=== PATIENT | female | born 1945 | race Caucasian/White ===

== ENCOUNTER 2023-11-29 16:48 | Inpatient (IN) | payer OTHER, SELFPAY ==
[2023-11-29] VITALS (17 sets, daily range): BP systolic 101–145; BP diastolic 48–78; PULSE 2–110; BMI 41.7; BMI 39.5
--- NOTE | 2023-11-29 12:46 | ED.GENMED ---
History of Present Illness
General
Chief Complaint: Breathing Problem
Source: patient and ambulance crew
Exam Limitations: none
Time Seen by Provider: 11/29/23 12:44
Nursing documentation reviewed up to this point in time: agreed with
History of Present Illness
History of Present Illness:
The patient is an 78-year-old female with a past medical history of CHF, chronic renal disease, and COPD who presents with increased work of breathing and increased dry cough for 2 days. Patient chronically wears 4 L of oxygen and arrives wearing 4
L of oxygen. Patient denies chest pain and fever. She denies headache, nasal congestion, and increased leg swelling. Patient reports that she is wheelchair-bound.
Past History
Past History
ED Past Medical History: Arrthythmia, Asthma, CAD, CHF, COPD, HTN, Hypercholesterolemia, NIDDM, [place] (X6), Valvular disease and Other (Anemia, Cellulitis, Kidney failure, Degenerative arthritis, Ulcers)
ED Past Surgical History: Gynecological, Tonsilectomy and Other (Hernia repair)
Social History
Tobacco: Former smoker
Alcohol: None
Drug: None
Personal:
Living: halfway
Employment: Other
Family History
Family History: Other (No significant)
Review of Systems
Review of Systems
Allergies reviewed?: Yes
All Other Systems: ROS reviewed and negative except as documented in HPI and ROS
Constitutional: Reports no symptoms
EENT: Reports no symptoms
Respiratory: Reports cough and trouble breathing
Cardiac: Reports no symptoms
ABD/GI: Reports no symptoms
: Reports no symptoms
Musculoskeletal: Reports no symptoms
Skin: Reports no symptoms
Neurological: Reports no symptoms
Endocrine: Reports no symptoms
Hematologic/Lymphatic: Reports no symptoms
Psychiatric: Reports no symptoms
Phy Exam
Physical Exam
Physical Exam:
Physical Exam
General: Patient appears tachypneic but is speaking in full sentences. Audible wheezing. Wearing nasal oxygen
Neck: supple. no meningeal signs. normal psoterior pharynx
Heart: s1/s2 regular rate and rhythm,
Lungs: Tachypneic, wheezing, rhonchi
Abdomen: normal bowel sounds. not tender. no CVAT
Neuro: alert and oriented. no focal neurological deficits
Skin: no rash
Psychiatric: well kept. interactive and cooperative
Extremities: 3+ pitting edema bilateral lower extremities. Negative Homans' sign. No calf tenderness
Scores
Heart Failure Risk
Heart Failure Risk Score: Not Applicable
Course
Orders/Labs/Results
Orders:
Orders
11/29/23 12:44
Albuterol Sulfate [Ventolin Nebules] 15 mg INH R NOW STA
11/29/23 12:45
Electrocardiogram (*1) Stat
Reason for Study: Other
Other Reason for Exam: chest pain
Cardiac Monitoring- Treatment ONCE
EKG- Treatment ONCE
Dexamethasone Sod Phosphate [Decadron] 10 mg IV NOW STA
11/29/23 12:59
COVID-19 Antigen Urgent
Source: Nasal Swab
Influenza A+B Rapid Molecular Urgent
FIDE Source: Nasal Swab
Specimen Description:
11/29/23 13:05
Basic Metabolic Panel Urgent
Complete Blood Count/With Diff Urgent
NT-proBNP Urgent
Troponin I Urgent
11/29/23 14:33
CR Chest Portable - 1 View Urgent
Comment:
Reason For Exam: SOB
Reason Study Needs to be Portable: Patient Unstable
Bipap [RESP] Urgent
Patient to use own unit?: No
Inspiratory Pressure (cm H2O): 10
Expiratory Pressure (cm H2O): 5
11/29/23 Dinner
2000 calorie (17 carb) Diabetic
At Your Request: Full Participation
Fluid Restriction: 1200 mL/day (40 oz)
Diabetic Diet: Sodium, 2 Gram
11/29/23 15:15
Potassium Urgent
11/29/23 16:05
Admit/Transfer Patient As Directed
Co-Sign Provider:
Level of Care: Inpatient admission
Assign to:: IMU- Intermediate Care
Physician / Group: Yaz
Diagnosis: Respiratory Failure; CHF
Reason for Hospitalization: IV diuretics
Expected length of stay greater than two midnights?: Yes
ELOS- Estimated Length of Stay in days: 3
I certify the patient meets the requirements for IP care: Yes
11/29/23 16:14
Code Status As Directed
Resuscitation Status: Do not resuscitate
Reached after discussion with pt or family/Healthcare POA: Yes
Based on pt advanced directive or healthcare POA form: Yes
DNR Bracelet Application ONCE
11/29/23 16:28
Furosemide [Lasix] 80 mg IV NOW STA
11/29/23 16:29
NEPHROLOGY CONSULT Routine
Consulting Provider: Po Rutledge V.
Was physician already notified: Yes
11/29/23 19:11
Acetaminophen [Tylenol] 650 mg PO Q6HPRN PRN
Dextrose 50%-Water [Dextrose 50% Syringe] 12.5 grams IV [id number] PRN
Glucagon [GlucaGen] 1 mg IM PRN PRN
Insulin Aspart Corrective Low [Novolog Flexpen-Low Resistance] See Protocol SC AC
Ipratropium/Albuterol Sulfate [Duoneb] 3 ml INH R Q4HPRN PRN
11/29/23 19:11
Electrocardiogram (*1) Routine
Reason for Study: Other
Other Reason for Exam: heart failure
HF DIETARY CONSULT Routine
HF EDUCATOR CONSULT Routine
Comment:
Activity As Directed
Activity Level: Out of Bed- Chair
Bedside Glucose Monitoring As Directed
Frequency: AC&HS
Comment: Change to q6h if pt on TPN, tube feeding or not eating
Intake/ Output As Directed
Frequency: Per unit guidelines
Obtain Records As Directed
Dates of Information to be Released: July 2023
Type of Information Requested: H&P
Discharge Summary
Consults
Patient Education As Directed
Type: CHF folder
Comment: give on admission. Document in Interdisciplinary Education record
Sleep Apnea Assessment by RN As Directed
Comment:
Physician Instructions:
Vital Signs As Directed
Frequency: Other
Additional Instructions:: Q12 or per unit guidelines if more frequent.
Weight As Directed
Frequency: Daily
Type of Scale: Standing Scale
Comment: Daily morning weight. If unable to stand, use balanced bed scale.
Weight As Directed
Frequency: Once
Type of Scale: Standing Scale
Comment: Upon Admission. If unable to stand, use balanced bed scale.
O2 Therapy [RESP] Routine
Titrate/Wean O2 to maintain O2 sat greater than (%): 90
Pulse Ox/cont/shift [RESP] Routine
Quantity: 1
Special Instructions: Daily pulse oximetry at rest. If greater than 92% at rest also obtain pulse oximetry
while ambulating as tolerated.
11/29/23 20:00
Apixaban [Eliquis] 2.5 mg PO BID
Budesonide [Pulmicort] 0.5 mg INH R BID
Ipratropium/Albuterol Sulfate [Duoneb] 3 ml INH R QID
11/29/23 22:00
Atorvastatin [Lipitor] 40 mg PO HS
11/30/23 06:00
Basic Metabolic Panel IN AM
Complete Blood Count/No Diff IN AM
Glycohemoglobin (HgbA1c) IN AM
Magnesium IN AM
TSH Reflex To Free T4 IN AM
11/30/23 08:00
FOLic ACID [Folvite] 1 mg PO DAILY
Ferrous Sulfate [Feosol] 325 mg PO DAILY
Metoprolol Xl [Toprol Xl] 25 mg PO DAILY
Midodrine [ProAmatine] 10 mg PO DAILY
Pantoprazole [Protonix] 40 mg PO DAILY
Sertraline HCl [Zoloft] 25 mg PO DAILY
12/01/23 06:00
Basic Metabolic Panel IN AM
12/01/23 08:00
Gabapentin [Neurontin] 100 mg PO MoWeFr@0800
12/02/23 06:00
Basic Metabolic Panel IN AM
Abnormal Lab Results
11/29/23
13:05
RBC 3.87 L 10^6/uL
(4.20-5.40)
Hgb 10.8 L g/dL
(12.0-16.0)
Hct 34.5 L %
(37.0-47.0)
MCHC 31.3 L g/dL
(33.0-37.0)
RDW 16.2 H %
(11.5-14.5)
MPV 11.1 H fL
(7.4-10.4)
Absolute Lymphs (auto) 0.5 L 10^3/uL
(1.2-3.4)
Absolute Monos (auto) 0.7 H 10^3/uL
(0.1-0.6)
Immature Gran % 0.6 H %
(0-0.5)
Neutrophils % 81.7 H %
(42.2-75.2)
Lymphocytes % 7.1 L %
(20.5-51.1)
Sodium 132 L mmol/L
(135-145)
BUN 37 H mg/dl
(7-17)
Creatinine 2.0 H mg/dL
(0.6-1.0)
Glucose 165 H mg/dl
(70-99)
11/29/23 13:05
11/29/23 15:15
Vital Signs
Initial and Last Documented VS:
Initial Vital Signs
BP
120/50
11/29/23 12:41
Last Documented Vital Signs
Temp Pulse Resp BP Pulse Ox
98.0 F 108 22 142/57 98
11/29/23 19:28 11/29/23 19:28 11/29/23 19:28 11/29/23 19:00 11/29/23 19:28
MDM/Problems Addressed
Differential Diagnosis Includes:
COPD exacerbation, pneumonia, CHF
MDM/Problems Addressed:
Patient presents with acute on chronic respiratory failure and shortness of breath
Chronic conditions affecting care: Cardiomyopathy, Arrhythmia and COPD
Acute Exacerbation and/or Progression of Chronic Illness:
Given patient has CHF and COPD, she is at increased risk of developing lung disease and exacerbation of COPD and CHF
Acute Exacerbation and/or Progression of Chronic Illness: COPD and Other (chf)
*Radiology
Radiology exam reviewed: preliminary read by ED provider (Chest x-ray checked by me. Left pleural effusion) and radiology read reviewed
*Pulse Oximetry
Patient hypoxic: no
Comment: On 4 L of nasal oxygen which is chronic for her
*EKG
Interpreted by ED Provider?: Yes
Interpretation: abnormal
Comparison EKG: no changes
Rate: normal
Rhythm: sinus
[place]: normal axis
Interval: normal interval
QRS Pattern: left vent hypertrophy
Ischemia: non-specific ST changes
*Environmental Scientist Interpretation
Rate: normal
Interpretation: normal
Rhythm: sinus
*Critical Care Note
Total Time (30-74mins, 75-104mins- exclusive of procedures): 40 minutes
comment:
40 minutes of critical care given to the patient including frequent reassessments of her respiratory effort. Speaking to the hospitalist, reviewing her chest x-ray, lab work, EKG and last hospitalization
Data Reviewed
Review of Other/Old Records Reveals: Discharge Summary (Discharge summary reviewed from October 2018 from hospitalist when patient was admitted for COPD exacerbation)
Source: patient
Update Note
Update Note:
Patient became more short of breath after 1 hour nebulizer. We will start on BiPAP
ED Attending Note
-
Portions of this chart may have been created with voice recognition software.� Occasional wrong word or��sound alike� substitutions may have occurred due to the inherent limitations of voice recognition software.
Discharge Plan
Departure
Patient Disposition: Admit
Date of Disposition: 11/29/23
Time of Disposition: 15:11
Admit to: IMU
Presentation/result/management discussed w/ accepting MD/DO: Hospitalist
Patient with high blood pressure during this ER visit?: Yes
Condition: Critical
Covid-19: Negative COVID-19
Discharge Problem:
Acute on chronic hypoxic respiratory failure, acute on chronic chf
Interventions
Interventions:
*Risk Screen - Suicide Last Done: 11/29/23 12:45
*General Assessment Last Done: 11/29/23 12:45
*Neglect/Abuse Screening Last Done: 11/29/23 12:45
ED- Fall Risk Assessment Last Done: 11/29/23 19:06
*ED COVID-19 Vaccine History Last Done: 11/29/23 12:45
*Nursing Disposition Last Done: 11/29/23 19:06
ED- Cardiac Assessment Last Done: 11/29/23 14:32
ED- Pulmonary Assessment Last Done: 11/29/23 14:32
Discharge Date and Time
Discharge Date/Time: 11/29/23 19:06
[2023-11-29] MEDS: VENTOLIN NEBULES 15 MG INH (13:03)
[2023-11-29] MEDS: DECADRON 10 MG IV (13:09)
[2023-11-29 13:24] LABS: % Basophils 0.6 % (0-2); % Eosinophils 0.7 % (0-6); % Immature Granulocytes 0.6 % (0-0.5); % Lymphocytes 7.1 % (20.5-51.1); % Monocytes 9.3 % (1.7-9.3); % Neutrophils 81.7 % (42.2-75.2); Absolute Eosinophils 0.1 10^3/uL (0-0.7); Absolute Lymphocytes 0.5 10^3/uL (1.2-3.4); Absolute Monocytes 0.7 10^3/uL (0.1-0.6); Absolute Neutrophils 5.9 10^3/uL (1.4-6.5); Hematocrit 34.5 % (37.0-47.0); Hemoglobin 10.8 g/dL (12.0-16.0); Mean Corp Hgb Conc. 31.3 g/dL (33.0-37.0); Mean Corpuscular Hgb 27.9 pg (27.0-31.0); Mean Corpuscular Volume 89.1 fL (81.0-99.0); Mean Platelet Volume 11.1 fL (7.4-10.4); Nucleated Red Blood Cells % 0 %; Platelet Count 176 10^3/uL (130-400); Red Blood Cell Count 3.87 10^6/uL (4.20-5.40); Red Cell Dist. Width 16.2 % (11.5-14.5); White Blood Cell Count 7.2 10^3/uL (4.8-10.8)
[2023-11-29 13:33] LABS: COVID-19 Antigen Negative (Negative)
[2023-11-29 13:35] LABS: Blood Urea Nitrogen 37 mg/dl (7-17); Calcium 9.1 mg/dl (8.4-10.2); Carbon Dioxide 25 mmol/L (22-30); Chloride 101 mmol/L (98-107); Estimated Creatinine Clearance 24 ml/min; Glucose 165 mg/dl (70-99); Sodium 132 mmol/L (135-145); eGFR 24.79
[2023-11-29 13:43] LABS: NT-proBNP > 27000 pg/ml; Troponin I < 0.012 ng/ml
--- NOTE | 2023-11-29 14:27 | PHANOTE ---
Addendum entered by Maria Esther Goodwin 11/29/23 16:20:
called shelter back to verify Levemir dosing
Original Note:
11/29/2023, med rec tech, used pt.'s [place] paperwork to obtain their med. list; however, [place] paperwork does not specify how many units of insulin detemir pt. takes in the morning vs. in the evening. Called [facility], but was unsuccessful in determining this
information. [facility] said they will call back with this information when they have it.
[2023-11-29 15:34] LABS: Potassium 4.8 mmol/L (3.5-5.1)
--- NOTE | 2023-11-29 16:30 | HPS.HSE ---
Addendum entered and electronically signed by Errol Mukherjee MD 11/30/23 07:52:
I saw and examined the patient.
The [facility] or PA's note was reviewed and I agree with the note.
Comment:
78-year-old with past medical history of ESRD on dialysis, COPD chronically on 4 L,�Afib, Asthma, CAD, HTN, Hypercholesterolemia, NIDDM, [place] (X6), chronic HFpEF, moderate to severe MR, mild-moderate AAS�now presents for increased work of breathing
and dry cough for 2 days.� Patient was placed on BiPAP for respiratory support.� Tachycardic to 113, respiratory rate of 31.� Rhonchi bilaterally.� Sodium 132, trops x 1 negative.� SARS-CoV-2 negative.� X-ray with mild pulmonary vascular congestion,
agents of the left hemidiaphragm, most likely left pleural effusion.� Plan�80 mg IV Lasix now.� Renal consult for HD.� Trend troponins.� Echo
Original Note:
Family Physician
-
Family Physician: Talon Duron
Chief Complaint
-
Shortness of Breath
History of Present Illness
Patient is 78 y/o female past medical history of CAD, CHF, and CKD who presents with increased shortness of breath. Patient reports symptoms started last night. She admits to associated cough. She denies fevers, sweats or chills. She denies
chest pain, palpitations or increased lower extremity edema. She notes she was started on dialysis a few months ago during a hospitalization at [facility], but still makes urine.
Medical History
Past Medical History
Past Medical History: Reports Other
Additional Past Medical History:
Coronary Artery Disease s/p stents
Chronic HFpEF
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
Paroxysmal Atrial Fibrillation
Essential Hypertension
Hyperlipidemia
Diabetes Mellitus, Type II
Peripheral Neuropathy
COPD
Past Surgical History: Reports Other
Additional Past Surgical History:
Tonsillectomy
Hernia Repair
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
Social History
Tobacco: Non-smoker
Living: [facility]
Family History
Family History: Not pertinent
Allergies / Home Medications
Allergies reflects when Allergies were last updated in [facility].
Home Medications with original date entered in [facility]
Allergy/Medication List:
Allergies
Allergy/AdvReac Type Severity Reaction Status Date / Time
amoxicillin trihydrate Allergy Nausea / Verified 11/10/18 16:46
[From Augmentin] Vomiting
cat dander Allergy DYSPNEA,HOT Verified 11/10/18 16:46
FLASHES,CHEST
PAIN
cephalexin Allergy Nausea / Verified 11/10/18 16:46
Vomiting
Iodinated Contrast Media Allergy Unknown Verified 11/10/18 16:46
[Iodinated Contrast Media -
Oral and]
levofloxacin [From Levaquin] Allergy severe Verified 11/10/18 16:46
abdominal
symptoms
lidocaine Allergy HALLUCINATI Verified 11/10/18 16:46
ONS
potassium clavulanate Allergy Nausea / Verified 11/10/18 16:46
[From Augmentin] Vomiting
procaine [From Novocain] Allergy Unknown Verified 11/10/18 16:46
surinder hips Allergy Unknown Verified 11/10/18 16:46
venom-honey bee Allergy Anaphylaxis Verified 11/10/18 16:46
[bee venom (honey bee)]
Home Medications
atorvastatin 40 mg tablet 40 mg PO HS 10/20/14
nitroglycerin 0.4 mg sublingual tablet 0.4 mg sublingual [id number] PRN chest pain #30 tabs 11/28/15
acetaminophen 325 mg tablet (Tylenol) 650 mg PO Q6H PRN mild pain 11/29/23
acetaminophen 650 mg tablet,extended release (Tylenol 8 Hour) 1,300 mg PO Q8H PRN mild pain 11/29/23
albuterol sulfate 90 mcg/actuation aerosol inhaler 2 puff inhalation R Q4HPRN PRN sob 11/29/23
albuterol sulfate 90 mcg/actuation aerosol inhaler 2 puff inhalation R QID 11/29/23
apixaban 2.5 mg tablet (Eliquis) 2.5 mg PO BID 11/29/23
bisacodyl 10 mg rectal suppository 10 mg OK DAILY PRN if no results for MOM 11/29/23
carboxymethylcellulose sodium 1 % eye drops 1 drp BOTH EYES Q1HPRN PRN dry eyes 11/29/23
cyanocobalamin (vitamin B-12) 1,000 mcg tablet 1,000 mcg PO DAILY 11/29/23
cyclobenzaprine 10 mg tablet 10 mg PO Q8HPRN PRN muscle spasms 11/29/23
ferrous sulfate 325 mg (65 mg iron) tablet 325 mg PO DAILY 11/29/23
fluticasone fur. 100 mcg-umeclid 62.5 mcg-vilant 25 mcg inhalat.powder (Trelegy Ellipta) 2 inh inhalation R DAILY 11/29/23
fluticasone propionate 110 mcg/actuation HFA aerosol inhaler 1 puff inhalation R DAILY 11/29/23
folic acid 1 mg tablet 1 mg PO DAILY 11/29/23
gabapentin 100 mg capsule 100 mg PO [id number] 11/29/23
guaifenesin 600 mg tablet, extended release 12 hr (Mucus Relief ER) 600 mg PO [id number] PRN cough 11/29/23
insulin detemir U-100 100 unit/mL subcutaneous solution 12 unit SC DAILY 11/29/23
insulin detemir U-100 100 unit/mL subcutaneous solution 17 unit SC HS 11/29/23
magnesium hydroxide 400 mg/5 mL oral suspension (Milk of Magnesia) 30 ml PO HSPRN PRN if no BM in 3 days 11/29/23
metoprolol succinate 25 mg tablet,extended release 24 hr 25 mg PO DAILY 11/29/23
miconazole nitrate 2 % topical cream 1 applic topical BID apply to perineum 11/29/23
midodrine 5 mg tablet 10 mg PO DAILY 11/29/23
nystatin 100,000 unit/gram topical powder 1 applic topical BID apply to folds 11/29/23
pantoprazole 40 mg tablet,delayed release 40 mg PO DAILY 11/29/23
sennosides 8.6 mg tablet (senna) 17.2 mg PO [id number] PRN constipation 11/29/23
sertraline 25 mg tablet 25 mg PO DAILY 11/29/23
sodium chloride 0.65 % nasal spray aerosol 1 spray intranasal Q2H PRN rhinitis 11/29/23
Review of Systems
-
A 12 point ROS was completed and negative except as noted: Yes
Constitutional: Denies Fever or Chills
Respiratory: Reports Cough and Trouble Breathing
Cardiac: Denies Chest Pain or Palpitations
Physical Exam
Vital Signs
Vital Signs
Temp Pulse Resp BP Pulse Ox
98.7 F 105 23 142/54 96
11/29/23 12:45 11/29/23 15:15 11/29/23 15:15 11/29/23 14:29 11/29/23 15:15
Physical Exam
General: Well Developed, Well Nourished and Conversant
HEENT: Anicteric, Moist mucous membranes and Oxygen (Bipap)
Respiratory: Rhonchi (Diffuse)
Cardiac: S1/S2 and Regular Rhythm
GI: Soft and Non Tender
Rectal: Deferred by Provider
Musculoskeletal: No Clubbing, No Cyanosis, Edema, Left Lower Extremity and Edema, Right Lower Extremity
Skin: Warm and Dry
Neuro: Awake, Alert and Nonfocal/grossly intact
Laboratory Results
-
11/29/23 13:05
11/29/23 15:15
Laboratory Results
Total Bilirubin Cancelled 11/29/23 13:05
AST Cancelled 11/29/23 13:05
ALT Cancelled 11/29/23 13:05
Alkaline Phosphatase Cancelled 11/29/23 13:05
Troponin I < 0.012 ng/ml 11/29/23 13:05
Data Reviewed
-
Diagnostic Radiology: Report Reviewed by me
Lab Data: Labs Reviewed by me
Old Records: Requested and Reviewed
Impression/Plan
-
Acute on Chronic Hypoxic Respiratory Failure secondary to Acute Volume Overload
-Continue BiPAP - Wean as able
-Check VBG
Acute Volume Overload
-Give Lasix 80mg IV Now
-Consult Nephrology for additional volume management with dialysis
Coronary Artery Disease s/p stents
Paroxysmal Atrial Fibrillation
-Continue Eliquis for anticoagulation
-Continue metoprolol for rate/rhythm control
Hyperlipidemia
-Continue atorvastatin
Diabetes Mellitus, Type II
-Continue Lantus
-Monitor sugars and continue coverage insulin
Peripheral Neuropathy
-Continue gabapentin
COPD
-Continue DuoNeb and Pulmicort in place of Trelegy
DVT proph: Eliquis
Code Status: DNR/DNI
--- NOTE | 2023-11-29 16:35 | W.PN.UPDATE ---
Update Note
Progress Note Update
see RUBIN note for further details. this note serves as supplemental.
78-year-old with past medical history of ESRD on dialysis, COPD chronically on 4 L, Afib, Asthma, CAD, HTN, Hypercholesterolemia, NIDDM, [place] (X6), chronic HFpEF, moderate to severe MR, mild-moderate AAS now presents for increased work of breathing
and dry cough for 2 days.� Patient was placed on BiPAP for respiratory support.� Tachycardic to 113, respiratory rate of 31.� Rhonchi bilaterally.� Sodium 132, trops x 1 negative.� SARS-CoV-2 negative.� X-ray with mild pulmonary vascular congestion,
agents of the left hemidiaphragm, most likely left pleural effusion.� Plan�80 mg IV Lasix now.� Renal consult for HD.� Trend troponins.� Echo
[2023-11-29] MEDS: LASIX 80 MG IV (16:54)
--- NOTE | 2023-11-29 17:13 | W.CON.NEPH ---
Consultation
-
Date/Time Consultation Requested: 11/29/23 163
Date/Time Consultation Performed: 11/29/23 1630
Requesting Provider: jackei Arizmendi
Performing Provider: Corinne Taylor
Reason for Consultation: ESRD
Medical History
-
Chief Complaint: ESRD
History of Present Illness:
a 78-year-old female with a history of CAD, diastolic CHF, suspected ESRD on dialysis at [facility] through right chest wall tunneled catheter sent from half-way with a cough and shortness of breath. Patient reports symptoms started last
night and worsening hence presented to the ER and missed her dialysis today. Reportedly she was started on dialysis probably around July when she was at [facility] and discharged to [facility] on dialysis. Patient admits to dialysis
mainly for volume control. Reports following fluid restriction of 48 ounces at the rehabilitation. She continues to make urine without diuretics. She denies any fever. She was wheezing on presentation and required 1 hour long of nebulizers,
chest x-ray shows CHF. She is currently on BiPAP, reportedly uses NC O2 4 L at baseline. no chest pain. Report chronic diarrhea. No abdominal pain. Denies issues with the dialysis, notes she is on midodrine.
Past Medical History
Coronary Artery Disease s/p stents
Chronic HFpEF
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
Paroxysmal Atrial Fibrillation
Essential Hypertension
Hyperlipidemia
Diabetes Mellitus, Type II
Peripheral Neuropathy
COPD
Past Surgical History: Reports Other
Additional Past Surgical History:
Tonsillectomy
Hernia Repair
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
Social History
no smoking or alcohol. Lives at a half-way [facility]
Family History
no history of CKD
Allergies / Home Medications
Allergy/AdvReac Type Severity Reaction Status Date / Time
amoxicillin trihydrate Allergy Nausea / Verified 11/10/18 16:46
[From Augmentin] Vomiting
cat dander Allergy DYSPNEA,HOT Verified 11/10/18 16:46
FLASHES,CHEST
PAIN
cephalexin Allergy Nausea / Verified 11/10/18 16:46
Vomiting
Iodinated Contrast Media Allergy Unknown Verified 11/10/18 16:46
[Iodinated Contrast Media -
Oral and]
levofloxacin [From Levaquin] Allergy severe Verified 11/10/18 16:46
abdominal
symptoms
lidocaine Allergy HALLUCINATI Verified 11/10/18 16:46
ONS
potassium clavulanate Allergy Nausea / Verified 11/10/18 16:46
[From Augmentin] Vomiting
procaine [From Novocain] Allergy Unknown Verified 11/10/18 16:46
surinder hips Allergy Unknown Verified 11/10/18 16:46
venom-honey bee Allergy Anaphylaxis Verified 11/10/18 16:46
[bee venom (honey bee)]
Medication Instructions Recorded Confirmed Type
atorvastatin 40 mg tablet 40 mg PO HS 10/20/14 11/29/23 History
nitroglycerin 0.4 mg sublingual 0.4 mg sublingual [id number] PRN 11/28/15 11/29/23 Rx
tablet chest pain #30 tabs
acetaminophen 325 mg tablet 650 mg PO Q6H PRN mild pain 11/29/23 11/29/23 History
(Tylenol)
acetaminophen 650 mg 1,300 mg PO Q8H PRN mild pain 11/29/23 11/29/23 History
tablet,extended release (Tylenol 8
Hour)
albuterol sulfate 90 mcg/actuation 2 puff inhalation R Q4HPRN PRN sob 11/29/23 11/29/23 History
aerosol inhaler
albuterol sulfate 90 mcg/actuation 2 puff inhalation R QID 11/29/23 11/29/23 History
aerosol inhaler
apixaban 2.5 mg tablet (Eliquis) 2.5 mg PO BID 11/29/23 11/29/23 History
bisacodyl 10 mg rectal suppository 10 mg ID DAILY PRN if no results 11/29/23 11/29/23 History
for MOM
carboxymethylcellulose sodium 1 % 1 drp BOTH EYES Q1HPRN PRN dry eyes 11/29/23 11/29/23 History
eye drops
cyanocobalamin (vitamin B-12) 1,000 mcg PO DAILY 11/29/23 11/29/23 History
1,000 mcg tablet
cyclobenzaprine 10 mg tablet 10 mg PO Q8HPRN PRN muscle spasms 11/29/23 11/29/23 History
ferrous sulfate 325 mg (65 mg 325 mg PO DAILY 11/29/23 11/29/23 History
iron) tablet
fluticasone fur. 100 mcg-umeclid 2 inh inhalation R DAILY 11/29/23 11/29/23 History
62.5 mcg-vilant 25 mcg
inhalat.powder (Trelegy Ellipta)
fluticasone propionate 110 1 puff inhalation R DAILY 11/29/23 11/29/23 History
mcg/actuation HFA aerosol inhaler
folic acid 1 mg tablet 1 mg PO DAILY 11/29/23 11/29/23 History
gabapentin 100 mg capsule 100 mg PO MOWEFR 11/29/23 11/29/23 History
guaifenesin 600 mg tablet, 600 mg PO [id number] PRN cough 11/29/23 11/29/23 History
extended release 12 hr (Mucus
Relief ER)
insulin detemir U-100 100 unit/mL 12 unit SC DAILY@2100 11/29/23 11/29/23 History
subcutaneous solution
insulin detemir U-100 100 unit/mL 17 unit SC DAILY 11/29/23 11/29/23 History
subcutaneous solution
magnesium hydroxide 400 mg/5 mL 30 ml PO HSPRN PRN if no BM in 3 11/29/23 11/29/23 History
oral suspension (Milk of Magnesia) days
metoprolol succinate 25 mg 25 mg PO DAILY 11/29/23 11/29/23 History
tablet,extended release 24 hr
miconazole nitrate 2 % topical 1 applic topical BID apply to 11/29/23 11/29/23 History
cream perineum
midodrine 5 mg tablet 10 mg PO DAILY 11/29/23 11/29/23 History
nystatin 100,000 unit/gram topical 1 applic topical BID apply to folds 11/29/23 11/29/23 History
powder
pantoprazole 40 mg tablet,delayed 40 mg PO DAILY 11/29/23 11/29/23 History
release
sennosides 8.6 mg tablet (senna) 17.2 mg PO [id number] PRN constipation 11/29/23 11/29/23 History
sertraline 25 mg tablet 25 mg PO DAILY 11/29/23 11/29/23 History
sodium chloride 0.65 % nasal spray 1 spray intranasal Q2H PRN rhinitis 11/29/23 11/29/23 History
aerosol
Review of Systems
-
all complete 12 point review of system have been inquired and found negative other than stated in HPI
Physical Exam
Vital Signs
Vital Signs
Temp Pulse Resp BP Pulse Ox
98.7 F 110 23 116/64 96
11/29/23 12:45 11/29/23 16:54 11/29/23 15:15 11/29/23 16:54 11/29/23 15:15
Lab Results
WBC 7.2 10^3/uL (4.8-10.8) 11/29/23 13:05
RBC 3.87 10^6/uL (4.20-5.40) L 11/29/23 13:05
Hgb 10.8 g/dL (12.0-16.0) L 11/29/23 13:05
Hct 34.5 % (37.0-47.0) L 11/29/23 13:05
Plt Count 176 10^3/uL (130-400) 11/29/23 13:05
Sodium 132 mmol/L (135-145) L 11/29/23 13:05
Potassium 4.8 mmol/L (3.5-5.1) 11/29/23 15:15
Chloride 101 mmol/L (98-107) 11/29/23 13:05
Carbon Dioxide 25 mmol/L (22-30) 11/29/23 13:05
BUN 37 mg/dl (7-17) H 11/29/23 13:05
Creatinine 2.0 mg/dL (0.6-1.0) H 11/29/23 13:05
eGFR 24.79 11/29/23 13:05
Glucose 165 mg/dl (70-99) H 11/29/23 13:05
Calcium 9.1 mg/dl (8.4-10.2) 11/29/23 13:05
Iuf-A-Uogfsuzklso Pept > 25065 pg/ml 11/29/23 13:05
Albumin Cancelled 11/29/23 13:05
Physical Exam
General: Awake, Alert, Oriented, AOx3 and Other (On BiPAP)
HEENT: EOMI and Anicteric
Respiratory: Rhonchi and Nonlabored Respirations
Cardiac: S1/S2 and Regular Rate/Rhythm
Abdomen: Soft, Nontender and Nondistended
Musculoskeletal: No Cyanosis and No Edema (trace edema)
Skin: No Rash
Neuro: Nonfocal/Grossly Intact
Psych: Appropriate
Assessment/Plan
-
IMP:
Acute on Chronic Hypoxic Respiratory Failure secondary to Acute Volume Overload
ESRD on HD since 07/2023?
Right chest wall tunneled catheter
Coronary Artery Disease s/p stents
Paroxysmal Atrial Fibrillation
Hyperlipidemia
Diabetes Mellitus, Type II
Peripheral Neuropathy
COPD
Hyponatremia-dilutional in ESRD
PLan:
A/w sob, noted CHF, missed HD today
recent initiation of HD per history-will need more records from [place]
agree with lasix and redose if needed
HD with UF plan in am, maintain strict FR 40ounces/day and renal diet
resume midodrine, BP are stable
wean BiPAP as tolerated, check ABG
d/w primary
Data Reviewed
-
Radiology: Image Personally Visualized and interpreted and Other (CXR:IMPRESSION: 1. Mild pulmonary vascular congestion. 2. Haziness of the left hemidiaphragm, which may be related to left lower lobe airspace disease and/or small left pleural
effusion.)
Labs: Labs Reviewed by me
[2023-11-29 18:03] LABS: B.E. -1.4 mmol/L; HCO3 24.8 mmol/L (21-28); O2 Saturation % 98.7 % (94-98); PCO2 47 mmHg (32-35); PO2 114 mmHg (83-108); pH 7.33 (7.35-7.45)
[2023-11-29] MEDS: PULMICORT 0.5 MG INH (19:23)
[2023-11-29] MEDS: DUONEB 3 ML INH (19:23)
[2023-11-29] MEDS: LIPITOR 40 MG PO (20:53)
[2023-11-29] MEDS: ELIQUIS 2.5 MG PO (20:54)
[2023-11-29 21:03] LABS: Glucose - Point of Care 248 mg/dl (70-99)
[2023-11-29] MEDS: NOVOLOG FLEXPEN-LOW RESISTANCE 2 UNITS SC (21:43)
[2023-11-29] MEDS: LEVEMIR 0.170000000000000012 UNITS SC (21:43)
[2023-11-30] VITALS (55 sets, daily range): BP systolic 98–149; BP diastolic 35–129; PULSE 2–108; BMI 39.9
[2023-11-30 03:49] LABS: Hematocrit 33.5 % (37.0-47.0); Hemoglobin 10.4 g/dL (12.0-16.0); Mean Corpuscular Volume 90.1 fL (81.0-99.0); Mean Platelet Volume 11.5 fL (7.4-10.4); Platelet Count 182 10^3/uL (130-400); Red Blood Cell Count 3.72 10^6/uL (4.20-5.40); Red Cell Dist. Width 16.1 % (11.5-14.5); White Blood Cell Count 6.6 10^3/uL (4.8-10.8)
[2023-11-30 04:17] LABS: Blood Urea Nitrogen 50 mg/dl (7-17); Calcium 9.3 mg/dl (8.4-10.2); Carbon Dioxide 25 mmol/L (22-30); Chloride 99 mmol/L (98-107); Estimated Creatinine Clearance 21 ml/min; Glucose 267 mg/dl (70-99); Magnesium 1.9 mg/dl (1.6-2.3); Potassium 5.1 mmol/L (3.5-5.1); Sodium 133 mmol/L (135-145); eGFR 20.96
[2023-11-30 04:49] LABS: TSH Reflex To Free T4 0.67 uIU/ml (0.47-4.68)
--- NOTE | 2023-11-30 05:45 | PTCARENOTE ---
Patient remained on the BIPAP overnight. Was unable to tolerate being weaned due to dyspnea. Patient with episode of anxiety overnight. Complained of SOB and sinus tach in the 140s. EKG obtained and contact center associate provider made aware. Emotional support
provided and patient calmed down and heart rate back down to the 90s.
[2023-11-30] MEDS: PULMICORT 0.5 MG INH ×2 (07:26→20:22)
[2023-11-30] MEDS: DUONEB 3 ML INH ×4 (07:26→20:22)
[2023-11-30] MEDS: ProAmatine 5 MG PO (07:38)
[2023-11-30] MEDS: ELIQUIS 2.5 MG PO ×2 (07:47→20:58)
[2023-11-30] MEDS: TOPROL XL 25 MG PO (07:47)
[2023-11-30 08:00] LABS: Glucose - Point of Care 159 mg/dl (70-99)
--- NOTE | 2023-11-30 08:33 | W.PN.NEPH.HD ---
Assessment
-
Patient seen on HD, remains on bipap
sbp ~156 at 3kg u/f
will do HD again tomorrow
HD via right IJ
CXR findings do not support volume overload in proportion to degree of hypoxia
likely will require steroids
Progress Note - Hemodialysis
-
Date of Service: November 30, 2023
Duration: 30 minutes and 3 hours
Potassium Bath: 2
Calcium Bath: 2.5
Opti-Dialyzer: 160
Ultrafiltration: Other (3kg)
Blood Flow: 400
Dialysate Flow: 600
Heparin: none
EPO: none
[2023-11-30] MEDS: ProAmatine PO (08:56)
[2023-11-30] MEDS: FEOSOL PO (08:57)
[2023-11-30] MEDS: PROTONIX PO (08:57)
[2023-11-30] MEDS: FOLVITE PO (08:57)
[2023-11-30] MEDS: ZOLOFT PO (08:57)
[2023-11-30] MEDS: DESENEX/MITRAZOL/ZEASORB 1 APPLIC TOPICAL ×2 (09:00→20:58)
[2023-11-30] MEDS: NOVOLOG FLEXPEN-LOW RESISTANCE 1 UNITS SC (09:01)
[2023-11-30 09:11] LABS: Glycohemoglobin (HgbA1c) 5.6 % (4.0-5.6)
[2023-11-30] MEDS: FLEXBUMIN 25% FOR HEMODIALYSIS 12.5 GRAMS IV (09:42)
[2023-11-30] MEDS: MANNITOL 12.5 GRAMS IV (09:42)
[2023-11-30] MEDS: HEPARIN 4200 UNITS INTRACATH (11:04)
[2023-11-30 12:09] LABS: Glucose - Point of Care 126 mg/dl (70-99)
[2023-11-30] MEDS: NOVOLOG FLEXPEN-LOW RESISTANCE SC ×2 (12:10→17:37)
[2023-11-30] MEDS: LEVEMIR 0.0899999999999999967 UNITS SC (12:13)
--- NOTE | 2023-11-30 13:03 | WOUNDNOTE ---
RLE (ANTERIOR LATERAL)
--- NOTE | 2023-11-30 13:03 | WOUNDNOTE ---
L BUTTOCKS/LOWER (gluteal fold)
--- NOTE | 2023-11-30 13:04 | WOUNDNOTE ---
ABDOMEN (LOWER)/SUPRAPUBIC AREA
--- NOTE | 2023-11-30 13:07 | WOUNDNOTE ---
[facility] RN note: Patient admitted with respiratory failure, CHF. Patient admitted from [facility].
See H&P for complete history.
PMH: ESRD on HD, COPD on o2, a fib, asthma, HTN, NIDDM, HI, HF, neuropathy.
Wound Location and type/assessment: Patient admitted with: generalized dull red/chafed skin sacral/buttocks, gluteal folds. Mary Grace/groin MASD. 2 small R forehead pink/scabbed skin lesions. Blanchable red heels. R upper anterior lateral calf small dry
abrasions. Patient developed a linear serous blister suprapubic/lower abdominal area suspect r/t Purwick use. Nursing stated the Purwick was removed/stopped shortly after using it d/t blister.
Appetite: on 2000 calorie diet.
Pressure redistribution devices in place: Centrella Max air. Patient helps with turning.
Plan: Patient incontinent of large soft dark brown stool. Mary Grace care given by GIDEON Deshpande. Miconazole powder and Calazime applied to lower gluteal folds/groin area. Sacral shaped silicone border foam applied on sacrum. Silicone border foam applied to
lower abdomen and RLE affected area. Protective foam applied to heels. Patient turned with help with GIDEON Deshpande and GIDEON Victor. Heels off bed with air chair cushion. Exuderm Statin applied on top of Liquicell nasal bridge dressing for padding. [place]
texted RT Ravi re: nasal bridge red under Liquicell pad, Exuderm Satin applied on top. RT Ravi to check patient's Bipap mask.
Will confirm orders with hospitalist and discussed with GIDEON Deshpande.
Care plan to be updated and will follow as needed.
--- NOTE | 2023-11-30 14:19 | CARDSERVLU ---
Echocardiogram with Lumason completed after protocol screening completed. Allergies verified.
Patent IV site: __Right hand 20 G PC site clear___
IV site flushed with 0.9% NaCl pre and post administration.
Diluted bolus method utilized to enhance visualization of ventricular velasquez.
Total volume given: ___2_ mL
Patient tolerated all procedures well without complications.
--- NOTE | 2023-11-30 15:07 | W.PN.HOSP.TC ---
Today's Communication/Plan
-
HD today
attempt off bipap if possible: if unable - start steroids
echo
Assessment / Plan
Assessment / Plan
Physical Exam
General: Well Developed, Well Nourished and Conversant
HEENT: Anicteric, Moist mucous membranes and Oxygen (Bipap)
Respiratory: Rhonchi (Diffuse)
Cardiac: S1/S2 and Regular Rhythm
GI: Soft and Non Tender
Rectal: Deferred by Provider
Musculoskeletal: No Clubbing, No Cyanosis, Edema, Left Lower Extremity and Edema, Right Lower Extremity
Skin: Warm and Dry
Neuro: Awake, Alert and Nonfocal/grossly intact
Acute on Chronic Hypoxic Respiratory Failure secondary to Acute Volume Overload +/- COPD exacerbation
-Continue BiPAP - Wean as able
-F/u ECHO
-HD today, s/ IV lasix 11/29
-Duonebs
-Possible initiation of Steroids if cannot wean off bipap s/p HD
-F/u ECHO
Coronary Artery Disease s/p stents
Paroxysmal Atrial Fibrillation
-Continue Eliquis for anticoagulation
-Continue metoprolol for rate/rhythm control
Hyperlipidemia
-Continue atorvastatin
Diabetes Mellitus, Type II
-Continue Lantus - half dose as currently on bipap and cannot tolerate PO at time
-Monitor sugars and continue coverage insulin
Peripheral Neuropathy
-Continue gabapentin
COPD
-Continue DuoNeb and Pulmicort in place of Trelegy
-possible steroid therapy today
DVT proph: Eliquis
Code Status: DNR/DNI
Total time spent on today's encounter was 50 minutes which included time spent in counseling the patient/family regarding diagnosis and treatment plan as listed above, goals of care, and symptom management. Case was discussed with nursing staff,
specialists, and care coordinators/case management. All labs and imaging personally reviewed by me. Remainder the time spent in detailed review of previous records, lab data, imaging, and other medical provider documentation.
Anticipated Discharge: > 48 hours
Subjective/Interval History
-
Date of Service: November 30, 2023
hd today
Objective Data
-
Labs:
Laboratory Results
11/30/23
03:36
WBC 6.6
Hgb 10.4 L
Hct 33.5 L
Plt Count 182
Sodium 133 L
Potassium 5.1
Chloride 99
Carbon Dioxide 25
BUN 50 H
Creatinine 2.3 H
Glucose 267 H
Calcium 9.3
Vital Signs:
Vital Signs
Temp Pulse Resp BP Pulse Ox
97.8 F 75 25 127/35 98
11/30/23 11:21 11/30/23 14:30 11/30/23 14:30 11/30/23 14:30 11/30/23 14:34
I&O
11/29/23 11/30/23 12/01/23
06:59 06:59 06:59
Intake Total 240 / 240 100 / 100
Balance 240 / 240 100 / 100
Review of Systems
-
History Source: Patient
All other systems: Not reviewed unless documented
Data Reviewed
-
Diagnostic Radiology: Image personally visualized and interpreted and Report Reviewed by me
Labs: Labs Reviewed by me
[2023-11-30] MEDS: SOLU-MEDROL PF 60 MG IV (17:30)
--- NOTE | 2023-11-30 17:39 | CM ---
Addendum entered by Bre Villa RN 11/30/23 17:44:
Seen by wound care nurse.
Original Note:
Patient from [facility] with Dx Acute on Chronic Hypoxic Respiratory Failure secondary to Acute Volume Overload +/- COPD exacerbation. O2 6L, BIPAP. PT Screen; No skilled PT needed.
Spoke with [facility]; the patient is there in LTC and on an MA bed hold. She is forgetful at baseline, requires total care, requires set up for meals, and is w/c bound - non-ambulatory. They are able to accept the patient
back.
Plan confirm return to [facility] with orlin.
Plan return to [facility] when medically ready.
[2023-11-30 17:48] LABS: Glucose - Point of Care 115 mg/dl (70-99)
--- NOTE | 2023-11-30 18:35 | PTCARENOTE ---
Addendum entered by Charlee Coffey RN 11/30/23 19:19:
New medication orders obtained and endorsed to night baker RN.
Original Note:
Patient heart rate 119, heart rate irregular. notified and ekg completed. Sinus tach with pacs. Patients respiratory rate is 25-[address] Mukherjee aware, steroids started. No new orders.
[2023-11-30] MEDS: LIPITOR 40 MG PO (20:58)
[2023-11-30 21:11] LABS: Hepatitis B Surface Antigen Negative (Negative)
[2023-11-30 21:37] LABS: Glucose - Point of Care 136 mg/dl (70-99)
[2023-11-30] MEDS: LEVEMIR 0.0599999999999999978 UNITS SC (21:39)
[2023-12-01] VITALS (39 sets, daily range): BP systolic 93–136; BP diastolic 44–114; PULSE 2–100; BMI 38.5
[2023-12-01] MEDS: SOLU-MEDROL PF 60 MG IV ×4 (00:44→23:56)
[2023-12-01 05:37] LABS: Hematocrit 33.5 % (37.0-47.0); Hemoglobin 10.5 g/dL (12.0-16.0); Mean Corp Hgb Conc. 31.3 g/dL (33.0-37.0); Mean Corpuscular Hgb 27.7 pg (27.0-31.0); Mean Corpuscular Volume 88.4 fL (81.0-99.0); Mean Platelet Volume 11.4 fL (7.4-10.4); Platelet Count 179 10^3/uL (130-400); Red Blood Cell Count 3.79 10^6/uL (4.20-5.40); Red Cell Dist. Width 16.1 % (11.5-14.5); White Blood Cell Count 8.5 10^3/uL (4.8-10.8)
[2023-12-01 06:00] LABS: ALT (SGPT) 14 U/L (0-35); AST (SGOT) 21 U/L (14-36); Albumin 3.5 g/dl (3.5-5.0); Alkaline Phosphatase 79 U/L (38-126); Blood Urea Nitrogen 32 mg/dl (7-17); Calcium 9.1 mg/dl (8.4-10.2); Carbon Dioxide 26 mmol/L (22-30); Chloride 98 mmol/L (98-107); Estimated Creatinine Clearance 24 ml/min; Glucose 151 mg/dl (70-99); Magnesium 1.9 mg/dl (1.6-2.3); Phosphorus 4.2 mg/dl (2.5-4.5); Potassium 4.8 mmol/L (3.5-5.1); Sodium 132 mmol/L (135-145); Total Bilirubin 0.6 mg/dl (0.2-1.3); Total Protein 6.1 g/dl (6.3-8.2); eGFR 26.36
--- NOTE | 2023-12-01 06:23 | PTCARENOTE ---
Cared for pt overnight. aaox3, anxious, agitated. ARVIZU, tachypneic, orthopneic. Remained on bipap overnight, unable to wean. RT switched masks d/t pt c/o of ADEN from old mask. 93% on bipap, still increased WOB. Lungs coarse, crackles, wheezing.
Q2T. SR w/ BBB PAC's PVCs. All woulds cdi. Held 2000 toprol order d/t sbp <120. PT currently sleeping, bed alarm on, call kumar in reach.
[2023-12-01] MEDS: DUONEB 3 ML INH ×4 (07:15→19:43)
[2023-12-01] MEDS: PULMICORT 0.5 MG INH ×2 (07:16→19:43)
--- NOTE | 2023-12-01 07:46 | CON.CAR ---
Addendum entered and electronically signed by Tom Cordoba MD 12/01/23 16:37:
I saw and examined the patient.
The Strategic Sourcing Specialist's note was reviewed and I agree with the note.
Comment:
GEN: No distress, awake, on BIPAP and HD
HEENT: supple, anicteric, mmm
LUNGS: bilat rhonchi
CV: Reg, S1/S2, 1/6 syst LSB, S3+
ABD: soft, BS+, NT/ND
EXT: +1 edema
NEURO: Gross non-focal
SKIN: No rash
plan:
She has a complex past medical history previously followed at [facility] with coronary disease, paroxysmal atrial fibrillation, chronic heart failure with reduced ejection fraction, moderate aortic stenosis, COPD, and end-stage renal disease
on hemodialysis. She presents with acute heart failure exacerbation and proBNP greater than 27,000 on BiPAP with hypoxemia.
Echocardiogram with EF 35 to 40% and global hypokinesis, mild to moderate MR, moderate aortic stenosis and PA pressure 50.
Continue significant volume removal with hemodialysis. Diuresis per nephrology if she makes urine.
Would continue Toprol, low-dose enalapril, and midodrine. Her blood pressure has been marginal and I do not think she will tolerate significant afterload reduction.
Continue Eliquis 2.5 mg twice daily.
Original Note:
Consultation
Consultation Request
Date/Time Consultation Requested: 11/30/2023 at 1830
Date/Time Consultation Performed: 12/01/2023 at 0745
Requesting Provider: Dr. Mukherjee
Performing Provider: Dr. TYLER Parikh
Reason for Consultation: CHF, CM
Medical History
-
History of Present Illness:
HPI: Zenaida is an 78-year-old female with past medical history of CAD, paroxysmal atrial fibrillation, chronic HFmrEF, ESRD, mitral regurgitation, aortic stenosis, COPD, diabetes, hypertension, hyperlipidemia, and LEEANN who presents to ER for
evaluation of cough and shortness of breath. She states her breathing worsened to the point where she was unable to go to dialysis and instead came to the emergency room for evaluation on 11/29/2022. In ER, she was wheezing and was given
nebulizers. Chest x-ray showed evidence of acute heart failure exacerbation and proBNP was > 27,000. She was admitted for further workup and evaluation and nephrology was consulted as she mainly uses dialysis for volume control. She was also
started on IV Lasix that she still does make urine. She was also placed on BiPAP for hypoxia. She has been diuresing and weight has been coming down throughout her admission, but her oxygen requirements have remained above baseline and she remains
on BiPAP. She had echocardiogram on 11/30/2023 which showed EF 35 to 40%. Cardiology consulted for evaluation. Patient reports she has known reduced EF and follows with her primary physiological chemist, Dr. Connor for this. She continues to feel SOB,
however notes no edema or chest pain.
PMH:
CAD
h/o CELL SUPPORT OPERATOR RCA, CO and stents 2004, 2006, 2011,
3.5 mm Promus LAD 04/25/15
complex bifurcation PTCA of the proximal LAD and large first diagonal 11/27/15
cath 02/13/18 with CELL SUPPORT OPERATOR RCA and occlusion of Diag-1 stent that appeared chronic, but new since 2016
Paroxysmal atrial fibrillation
Chronic Eliquis anticoagulation
Chronic HFmrEF
ESRD on HD MWF
Mitral regurgitation
Aortic Stenosis
COPD
DM2
HTN
Hyperlipidemia
Morbid obesity BMI 44
LEEANN
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
h/o skin breakdown and decubitus ulceration
Past Medical History
Past Medical History: Other (In HPI)
Past Surgical History: Tonsilectomy and Other (R 3rd finger amputation, hernia repair)
Social History
Tobacco: Non-Smoker
Alcohol: None
Drug: None
Living: Snf
Family History
Family History: Reviewed & Not Pertinent
Allergies / Home Medications
Allergy/AdvReac Type Severity Reaction Status Date / Time
amoxicillin trihydrate Allergy Nausea / Verified 11/10/18 16:46
[From Augmentin] Vomiting
cat dander Allergy DYSPNEA,HOT Verified 11/10/18 16:46
FLASHES,CHEST
PAIN
cephalexin Allergy Nausea / Verified 11/10/18 16:46
Vomiting
Iodinated Contrast Media Allergy Unknown Verified 11/10/18 16:46
[Iodinated Contrast Media -
Oral and]
levofloxacin [From Levaquin] Allergy severe Verified 11/10/18 16:46
abdominal
symptoms
lidocaine Allergy HALLUCINATI Verified 11/10/18 16:46
ONS
potassium clavulanate Allergy Nausea / Verified 11/10/18 16:46
[From Augmentin] Vomiting
procaine [From Novocain] Allergy Unknown Verified 11/10/18 16:46
surinder hips Allergy Unknown Verified 11/10/18 16:46
venom-honey bee Allergy Anaphylaxis Verified 11/10/18 16:46
[bee venom (honey bee)]
Medication Instructions Recorded Confirmed Type
atorvastatin 40 mg tablet 40 mg PO HS High Cholesterol 10/20/14 11/29/23 History
nitroglycerin 0.4 mg sublingual 0.4 mg sublingual [id number] PRN 11/28/15 11/29/23 Rx
tablet chest pain #30 tabs
acetaminophen 325 mg tablet 650 mg PO Q6H PRN mild pain 11/29/23 11/29/23 History
(Tylenol)
acetaminophen 650 mg 1,300 mg PO Q8H PRN mild pain 11/29/23 11/29/23 History
tablet,extended release (Tylenol 8
Hour)
albuterol sulfate 90 mcg/actuation 2 puff inhalation R Q4HPRN PRN sob 11/29/23 11/29/23 History
aerosol inhaler
albuterol sulfate 90 mcg/actuation 2 puff inhalation R QID 11/29/23 11/29/23 History
aerosol inhaler Lung/Breathing Issues
apixaban 2.5 mg tablet (Eliquis) 2.5 mg PO BID Blood Clot 11/29/23 11/29/23 History
Prevention/Tx
bisacodyl 10 mg rectal suppository 10 mg SC DAILY PRN if no results 11/29/23 11/29/23 History
for MOM
carboxymethylcellulose sodium 1 % 1 drp BOTH EYES Q1HPRN PRN dry eyes 11/29/23 11/29/23 History
eye drops
cyanocobalamin (vitamin B-12) 1,000 mcg PO DAILY Supplement 11/29/23 11/29/23 History
1,000 mcg tablet
cyclobenzaprine 10 mg tablet 10 mg PO Q8HPRN PRN muscle spasms 11/29/23 11/29/23 History
ferrous sulfate 325 mg (65 mg 325 mg PO DAILY Supplement 11/29/23 11/29/23 History
iron) tablet
fluticasone fur. 100 mcg-umeclid 2 inh inhalation R DAILY 11/29/23 11/29/23 History
62.5 mcg-vilant 25 mcg Lung/Breathing Issues
inhalat.powder (Trelegy Ellipta)
fluticasone propionate 110 1 puff inhalation R DAILY 11/29/23 11/29/23 History
mcg/actuation HFA aerosol inhaler Lung/Breathing Issues
folic acid 1 mg tablet 1 mg PO DAILY Supplement 11/29/23 11/29/23 History
gabapentin 100 mg capsule 100 mg PO [id number] Pain 11/29/23 11/29/23 History
guaifenesin 600 mg tablet, 600 mg PO [id number] PRN cough 11/29/23 11/29/23 History
extended release 12 hr (Mucus
Relief ER)
insulin detemir U-100 100 unit/mL 12 unit SC DAILY@2100 Diabetes 11/29/23 11/29/23 History
subcutaneous solution
insulin detemir U-100 100 unit/mL 17 unit SC DAILY Diabetes 11/29/23 11/29/23 History
subcutaneous solution
magnesium hydroxide 400 mg/5 mL 30 ml PO HSPRN PRN if no BM in 3 11/29/23 11/29/23 History
oral suspension (Milk of Magnesia) days
metoprolol succinate 25 mg 25 mg PO DAILY Blood Pressure 11/29/23 11/29/23 History
tablet,extended release 24 hr
miconazole nitrate 2 % topical 1 applic topical BID apply to 11/29/23 11/29/23 History
cream perineum
midodrine 5 mg tablet 10 mg PO DAILY Blood Pressure 11/29/23 11/29/23 History
nystatin 100,000 unit/gram topical 1 applic topical BID apply to folds 11/29/23 11/29/23 History
powder
pantoprazole 40 mg tablet,delayed 40 mg PO DAILY Gastrointestinal 11/29/23 11/29/23 History
release Issue
sennosides 8.6 mg tablet (senna) 17.2 mg PO [id number] PRN constipation 11/29/23 11/29/23 History
sertraline 25 mg tablet 25 mg PO DAILY Mental 11/29/23 11/29/23 History
Health/Anxiety
sodium chloride 0.65 % nasal spray 1 spray intranasal Q2H PRN rhinitis 11/29/23 11/29/23 History
aerosol
Review of Systems
-
History Source: Patient
All other systems: Negative unless noted
Physical Exam
Vital Signs
Temp Pulse Resp BP Pulse Ox
97.7 F 81 26 120/71 94
12/01/23 03:39 12/01/23 07:15 12/01/23 07:15 12/01/23 06:00 12/01/23 07:15
Lab Results
12/01/23 05:16
12/01/23 05:16
Troponin I < 0.012 ng/ml 11/29/23 13:05
Wfa-V-Nvuqclepkcn Pept > 86141 pg/ml 11/29/23 13:05
Physical Exam
General: Well Developed, Well Nourished and No Apparent Distress
HEENT: Normocephalic, Anicteric and Moist Mucous Membranes
Respiratory: Wheezes and Non Labored Respirations
Cardiac: S1/S2, Regular Rhythm and Murmur
Musculoskeletal: No Clubbing, No Cyanosis and Edema
Skin: Warm and Dry
Neuro: AO x 3 and Nonfocal/Grossly Intact
Psych: Calm
Impression / Plan
-
PCP: Dr. Duron
Cardiology:Dr. Connor ([facility])
Impression:
Presented with SOB
Acute on chronic hypoxic respiratory failure
Acute on chronic HFmrEF
Cardiomyopathy, EF 35-40%
COPD w/ possible acute exacerbation
CAD
h/o CELL SUPPORT OPERATOR RCA, CO and stents 2004, 2006, 2011,
3.5 mm Promus LAD 04/25/15
complex bifurcation PTCA of the proximal LAD and large first diagonal 11/27/15
cath 02/13/18 with CELL SUPPORT OPERATOR RCA and occlusion of Diag-1 stent that appeared chronic
NSTEMI w/ no intervention 01/29/2022
Paroxysmal atrial fibrillation
Chronic Eliquis anticoagulation
ESRD on HD MWF
Mitral regurgitation
Aortic Stenosis
h/o recurrent GIB
DM2
HTN
Hyperlipidemia
Morbid obesity BMI 44
LEEANN
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
h/o skin breakdown and decubitus ulceration
Echo @ [facility] 06/05/2023: EF 40%, grade 2 diastolic dysfunction, moderate with peak/mean gradients 32/19 mmHg, IRVING 0.96 cm2, moderate MR
Echo 11/30/2023: EF 35 to 40%, global hypokinesis, stage II diastolic dysfunction, MAC with moderate MR, moderate with peak/mean gradients 28/15 mmHg, IRVING 1.1 cm2, mild TR, estimated PAP 50 mmHg
Plan:
-Presented with SOB and found to be in acute heart failure. ProBNP >27,000.
-Nephrology managing diuresis with HD and IV lasix. Weight down to 203lbs. Creat overall stable at 1.9.
-Echo 11/30/2023 with EF 35 to 40%. Records requested and reviewed from primary physiological chemist including last office note and last echo.
-She has h/o CM with EF as low as 20-25% in 2021. EF has been in the 35-40% range since 2022.
-As of last cardiology note 05/11/2023, she was maintained on hydralazine 25mg BID, Imdur 30mg daily, Toprol 50mg BID, and spironolactone 12.5mg daily, however does not appear she was on dialysis at the time.
-Currently on metoprolol 25mg BID and enalapril 2.5mg daily. With CKD, would hold enalapril for now and follow BPs as he has been borderline hypotensive.
-She has h/o paroxysmal atrial fibrillation. Remains in SR on review of EKG, although heart rates are elevated.
-Of note, she is on Eliquis 2.5mg BID for anticoagulation, however previously this needed to be discontinued due to recurrent GIB.
-Known mitral regurgitation and aortic stenosis.
-On BiPAP, wean as able.
HPI: Zenaida is an 78-year-old female with past medical history of CAD, paroxysmal atrial fibrillation, chronic HFmrEF, ESRD, mitral regurgitation, aortic stenosis, COPD, diabetes, hypertension, hyperlipidemia, and LEEANN who presents to ER for
evaluation of cough and shortness of breath. She states her breathing worsened to the point where she was unable to go to dialysis and instead came to the emergency room for evaluation on 11/29/2022. In ER, she was wheezing and was given
nebulizers. Chest x-ray showed evidence of acute heart failure exacerbation and proBNP was > 27,000. She was admitted for further workup and evaluation and nephrology was consulted as she mainly uses dialysis for volume control. She was also
started on IV Lasix that she still does make urine. She was also placed on BiPAP for hypoxia. She has been diuresing and weight has been coming down throughout her admission, but her oxygen requirements have remained above baseline and she remains
on BiPAP. She had echocardiogram on 11/30/2023 which showed EF 35 to 40%. Cardiology consulted for evaluation. Patient reports she has known reduced EF and follows with her primary physiological chemist, Dr. Connor for this. She continues to feel SOB,
however notes no edema or chest pain.
Data Reviewed
-
EKG: Tracing Personally Visualized and interpreted
Radiology: Report Reviewed by me
Medical Tests (Nuc Med, Echo etc): Report Reviewed by me
Labs: Labs Reviewed by me
Old Records: Requested and Reviewed
[2023-12-01] MEDS: VASOTEC 2.5 MG PO (08:10)
[2023-12-01] MEDS: PROTONIX 40 MG PO (08:10)
[2023-12-01] MEDS: ProAmatine 10 MG PO (08:10)
[2023-12-01] MEDS: FEOSOL 325 MG PO (08:11)
[2023-12-01] MEDS: FOLVITE 1 MG PO (08:11)
[2023-12-01] MEDS: ZOLOFT 25 MG PO (08:11)
[2023-12-01] MEDS: DESENEX/MITRAZOL/ZEASORB 1 APPLIC TOPICAL ×2 (08:12→19:43)
[2023-12-01] MEDS: ELIQUIS 2.5 MG PO (08:12)
[2023-12-01 09:06] LABS: Glucose - Point of Care 143 mg/dl (70-99)
[2023-12-01] MEDS: NOVOLOG FLEXPEN-LOW RESISTANCE SC ×2 (09:09→19:14)
[2023-12-01] MEDS: HALDOL 1 MG IV ×3 (09:43→23:56)
[2023-12-01] MEDS: LEVEMIR 0.0899999999999999967 UNITS SC (09:43)
--- NOTE | 2023-12-01 10:41 | PTCARENOTE ---
Addendum entered by Estefani Griffith 12/01/23 11:41:
Pt resting more comfortably at this time. Labs sent. XR obtained at bedside. IV Lasix administered, see MAR. Pt with critical troponin result- TT to Dr. Mukherjee.
Original Note:
Pt received from night time nanny. Extremely anxious. Transitioned off bipap to HFNC by RT. Pt anxious but sats approx 99-100. Emotional support provided. Several hours later pt became very anxious again. Order for PRN IVP Haldol received- administered
yet pt remains anxious. Rang call kumar to inform this RN of chest tightness and difficulty breathing. HR to the 140's. RR in the 40's and desatting to mid 80's. TT to Dr. Mukherjee and RT. EKG obtained. Placed back on bipap by RT, MD Mukherjee at
bedside to evaluate pt. Awaiting further orders.
[2023-12-01] MEDS: LASIX 80 MG IV (11:06)
[2023-12-01] MEDS: BUSPAR 10 MG PO (11:38)
[2023-12-01 11:44] LABS: Troponin I 0.053 ng/ml
--- NOTE | 2023-12-01 12:24 | WOUNDNOTE ---
WO RN note: Patient has small pink abraded area suspect from Bipap mask on L facial cheek. 1.6x2 inch silicone border foam in use. Under the nose type Bipap mask being used. Suggest using silicone foam to any area that is irritated from the Bipap
mask/straps. Will update RT. Hemodialysis to start soon. Patient is on a Centrella Max air bed. Air chair cushion off loading heels. Care plan to be updated. Will follow as needed.
[2023-12-01 12:28] LABS: Glucose - Point of Care 186 mg/dl (70-99)
[2023-12-01] MEDS: MANNITOL 12.5 GRAMS IV (13:07)
[2023-12-01] MEDS: RETACRIT 4000 UNITS IV (13:08)
[2023-12-01] MEDS: ProAmatine 5 MG PO (13:25)
[2023-12-01] MEDS: NOVOLOG FLEXPEN-LOW RESISTANCE 1 UNITS SC (13:26)
--- NOTE | 2023-12-01 13:36 | PTCARENOTE ---
Phone call received from pt's daughter Berna who is not listed as a personnel coordinator. Per PT- okay to update her. Updated on plan of care, expressed gratitude for ongoing care.
--- NOTE | 2023-12-01 14:41 | W.PN.HOSP.TC ---
Today's Communication/Plan
-
empiric abx
duonebs
steroids
HD
Cards recs
Trend trops
WEan o2
anxiolytics
Assessment / Plan
Assessment / Plan
Physical Exam
General: Well Developed, Well Nourished and Conversant
HEENT: Anicteric, Moist mucous membranes and Oxygen (Bipap)
Respiratory: Rhonchi (Diffuse)
Cardiac: S1/S2 and Regular Rhythm
GI: Soft and Non Tender
Rectal: Deferred by Provider
Musculoskeletal: No Clubbing, No Cyanosis, Edema, Left Lower Extremity and Edema, Right Lower Extremity
Skin: Warm and Dry
Neuro: Awake, Alert and Nonfocal/grossly intact
Acute on Chronic Hypoxic Respiratory Failure secondary to Acute Volume Overload +/- COPD exacerbation
-Continue BiPAP - Wean as able
-F/u ECHO -0 EF 30-35%
-HD today, s/ IV lasix
-Duonebs
-Solumedrol
-F/u ECHO
-Empiric Abx
-Duonebs
-F/u MRSA, RSV
�Less likely PE as DVT studies negative and patient has expiratory wheezing indicative of other pulmonary pathology; also already on Eliquis
- i suspect anxiety is also underlying issue
#Acute HFrEF
-cards consulted
-HD
#Elevated trop
-Likely non-AK troponin elevation
� Continue to trend
No chest pain
Coronary Artery Disease s/p stents
Paroxysmal Atrial Fibrillation
-Continue Eliquis for anticoagulation
-Continue metoprolol for rate/rhythm control
Hyperlipidemia
-Continue atorvastatin
Diabetes Mellitus, Type II
-Continue Lantus - half dose as currently on bipap and cannot tolerate PO at time
-Monitor sugars and continue coverage insulin
Peripheral Neuropathy
-Continue gabapentin
COPD
-Continue DuoNeb and Pulmicort in place of Trelegy
-possible steroid therapy today
#Hyponatremia
� Most likely SIADH
� Monitor with dialysis
DVT proph: Eliquis
Code Status: DNR/DNI
Total time spent on today's encounter was 55 minutes which included time spent in counseling the patient/family regarding diagnosis and treatment plan as listed above, goals of care, and symptom management. Case was discussed with nursing staff,
specialists, and care coordinators/case management. All labs and imaging personally reviewed by me. Remainder the time spent in detailed review of previous records, lab data, imaging, and other medical provider documentation.
Anticipated Discharge: > 48 hours
Subjective/Interval History
-
Date of Service: December 01, 2023
worsneed hypoxia, although anxious this am; cxr with mild chf
Objective Data
-
Labs:
Laboratory Results
12/01/23
05:16
WBC 8.5
Hgb 10.5 L
Hct 33.5 L
Plt Count 179
Sodium 132 L
Potassium 4.8
Chloride 98
Carbon Dioxide 26
BUN 32 H
Creatinine 1.9 H
Glucose 151 H
Calcium 9.1
Total Bilirubin 0.6
AST 21
ALT 14
Alkaline Phosphatase 79
Vital Signs:
Vital Signs
Temp Pulse Resp BP Pulse Ox
98.0 F 95 26 109/56 100
12/01/23 11:43 12/01/23 12:30 12/01/23 12:30 12/01/23 12:30 12/01/23 12:30
I&O
11/30/23 12/01/23 12/02/23
06:59 06:59 06:59
Intake Total 240 / 240 100 / 100
Balance 240 / 240 100 / 100
Review of Systems
-
History Source: Patient
All other systems: Not reviewed unless documented
Data Reviewed
-
Diagnostic Radiology: Image personally visualized and interpreted and Report Reviewed by me
Labs: Labs Reviewed by me
--- NOTE | 2023-12-01 15:09 | CM ---
patient cont with bipap,wean o2 as tolerated on 6 liters nc o2,on iv solumedrol,iv abx,duo nebs.
Plan: to return to [facility] when stable.
[2023-12-01 15:45] LABS: Troponin I 0.063 ng/ml
[2023-12-01] MEDS: HEPARIN 4100 UNITS INTRACATH (16:10)
--- NOTE | 2023-12-01 16:24 | W.PN.NEPH.HD ---
Assessment
-
on BiPAP
minimal response to IV lasix
starting empricc abx and steroids
Progress Note - Hemodialysis
-
Date of Service: December 01, 2023
Duration: 30 minutes and 3 hours
Potassium Bath: 3
Calcium Bath: 2.5
Opti-Dialyzer: 160
Ultrafiltration: Other
Blood Flow: 400
Dialysate Flow: 600
EPO: 4K
[2023-12-01] MEDS: STERILE WATER FOR INJECTION 10 ML IV (16:33)
[2023-12-01] MEDS: ZITHROMAX INFUSION 250 IV (16:33)
[2023-12-01] MEDS: ROCEPHIN 1000 MG IV (16:33)
--- NOTE | 2023-12-01 17:10 | PTCARENOTE ---
Pt with dark tarry stool- heme positive. Dr. Mukherjee notified via TT.
[2023-12-01 18:36] LABS: Glucose - Point of Care 112 mg/dl (70-99)
[2023-12-01 18:45] LABS: Hematocrit 36.6 % (37.0-47.0); Hemoglobin 11.3 g/dL (12.0-16.0); Mean Corp Hgb Conc. 30.9 g/dL (33.0-37.0); Mean Corpuscular Hgb 28.1 pg (27.0-31.0); Mean Platelet Volume 11.1 fL (7.4-10.4); Platelet Count 215 10^3/uL (130-400); Red Blood Cell Count 4.02 10^6/uL (4.20-5.40); White Blood Cell Count 13.6 10^3/uL (4.8-10.8)
[2023-12-01] MEDS: PROTONIX IV 40 MG IV (19:16)
[2023-12-01] MEDS: LIPITOR 40 MG PO (19:16)
[2023-12-01] MEDS: NSS (PRESERVATIVE FREE) 10 ML IV (19:16)
[2023-12-01] MEDS: NEURONTIN 100 MG PO (19:45)
[2023-12-01] MEDS: LEVEMIR 0.0599999999999999978 UNITS SC (21:12)
[2023-12-01 21:22] LABS: Glucose - Point of Care 119 mg/dl (70-99)
--- NOTE | 2023-12-01 21:30 | PTCARENOTE ---
Caring for patient overnight. At start of shift pt was transferred to [facility] to eat food. only ate a few bites d/t SOB. sao2 93% but pt continuously calling in nurse to express she is SOB & cant catch a breath. Tried haldol in case it was anxiety
driven. HR was 120's, tachypneic high 30's, SOB rest. Haldol had no effect, pt was still SOB but now pursed lip breathing, HR 120's tachypneic. Placed back on bipap 10/5 5L. Lasted maybe an hour or so on HFNC. Pt is not more relaxed, HR 90's, sao2
97%, pt sleeping. NSR PAC PVC BBB, irregular. Lungs still coarse, crackles, exp. wheeze, no changes. All skin wounds CDI. RHD cath. GOt the ok from pt to speak to granddaughter Hortencia who called, gave her an update. No other issues at this time.
RT aware of situation and was at bedside entire time.
[2023-12-02] VITALS (33 sets, daily range): BP systolic 90–143; BP diastolic 29–127; PULSE 2–140; BMI 38.4
--- NOTE | 2023-12-02 00:06 | PTCARENOTE ---
PT called nurse in at 2335 c/o SOB despite being 98% on Bipap. HR began to increase to 130's, sustaining in 120-130's. Pt had frequent pvc & pac but rhythm looked different to this RN. EKG was done and read AFIB. SEARCH ENGINE MARKETING SPECIALIST updated. Discussed pt with SEARCH ENGINE MARKETING SPECIALIST
& what steps to take next. By this time it was 2350 and HR was already back down to 90's and pt seemed to relax. Haldol PRN given. No meds given for afib/elevated HR. BP's still running soft. 97% on Bipap. will monitor.
[2023-12-02 00:19] LABS: Glucose - Point of Care 122 mg/dl (70-99)
[2023-12-02] MEDS: NOVOLOG FLEXPEN-LOW RESISTANCE SC ×4 (00:51→18:03)
[2023-12-02] MEDS: DUONEB 3 ML INH ×5 (02:44→20:32)
[2023-12-02 04:42] LABS: Hemoglobin 11.1 g/dL (12.0-16.0); Mean Corp Hgb Conc. 30.8 g/dL (33.0-37.0); Mean Corpuscular Hgb 27.6 pg (27.0-31.0); Mean Corpuscular Volume 89.6 fL (81.0-99.0); Mean Platelet Volume 11.1 fL (7.4-10.4); Platelet Count 191 10^3/uL (130-400); Red Blood Cell Count 4.02 10^6/uL (4.20-5.40); Red Cell Dist. Width 16.3 % (11.5-14.5); White Blood Cell Count 13.1 10^3/uL (4.8-10.8)
[2023-12-02 05:03] LABS: ALT (SGPT) 14 U/L (0-35); AST (SGOT) 20 U/L (14-36); Albumin 3.7 g/dl (3.5-5.0); Alkaline Phosphatase 79 U/L (38-126); Blood Urea Nitrogen 29 mg/dl (7-17); Calcium 8.9 mg/dl (8.4-10.2); Carbon Dioxide 28 mmol/L (22-30); Chloride 96 mmol/L (98-107); Estimated Creatinine Clearance 29 ml/min; Glucose 122 mg/dl (70-99); Magnesium 1.9 mg/dl (1.6-2.3); Phosphorus 4.3 mg/dl (2.5-4.5); Potassium 4.1 mmol/L (3.5-5.1); Sodium 131 mmol/L (135-145); Total Bilirubin 0.6 mg/dl (0.2-1.3); Total Protein 6.2 g/dl (6.3-8.2)
[2023-12-02 05:06] LABS: Troponin I 0.075 ng/ml
[2023-12-02 06:00] LABS: Glucose - Point of Care 109 mg/dl (70-99)
[2023-12-02] MEDS: FEOSOL 325 MG PO (08:41)
[2023-12-02] MEDS: ProAmatine 10 MG PO (08:41)
[2023-12-02] MEDS: DESENEX/MITRAZOL/ZEASORB 1 APPLIC TOPICAL ×2 (08:41→20:41)
[2023-12-02] MEDS: ZOLOFT 25 MG PO (08:41)
[2023-12-02] MEDS: FOLVITE 1 MG PO (08:42)
[2023-12-02] MEDS: PULMICORT 0.5 MG INH ×2 (08:43→20:32)
[2023-12-02] MEDS: SOLU-MEDROL PF 60 MG IV ×3 (08:43→20:44)
[2023-12-02] MEDS: PROTONIX IV 40 MG IV ×2 (08:43→20:43)
[2023-12-02] MEDS: NSS (PRESERVATIVE FREE) 10 ML IV ×2 (08:44→20:42)
[2023-12-02 08:50] LABS: Glucose - Point of Care 115 mg/dl (70-99)
[2023-12-02] MEDS: LEVEMIR 0.0899999999999999967 UNITS SC (09:01)
[2023-12-02] MEDS: LOPRESSOR 5 MG IV (09:01)
--- NOTE | 2023-12-02 09:12 | PTCARENOTE ---
Assumed care of patient at beginning of this shift from previous RN with bipap in use and POx 97-100%. Respiratory therapist in to see patient and changed to high flow; POx 93-95%. HR increased to 150s-170s, afib with BP 90s/50s. Patient has not
received po metoprolo xl 25mg d/t BP parameters instructing to hold for SBP <120. Patient has increased work of breathing with elevated HR, POx remains 93-95% on high flow. Reviewed all with Dr Mukherjee who ordered lopressor 5mg IV stat, which was
given; HR currently 109-114. Patient stated she will not be ordering breakfast; she was due for lantus 9 units with morning accu check 115. Also reviewed with Dr Mukherjee who instructed to give insulin as ordered.
[2023-12-02] MEDS: HALDOL 1 MG IV (09:30)
[2023-12-02 11:21] LABS: Glucose - Point of Care 121 mg/dl (70-99)
[2023-12-02] MEDS: ZITHROMAX INFUSION 250 IV (11:34)
--- NOTE | 2023-12-02 11:46 | PTCARENOTE ---
Patient to go back on bipap after eating per Dr Mukherjee. Patient only took 2 bites of hot cereal and said she did not want anything more; respiratory therapist made aware to resume bipap.
Amiodarone infusion ordered by Dr Schwartz. INT leaking at insertion site; VAT RN notified to place 2 new IVs (one for IVAB and one for amiodarone).
[2023-12-02 11:54] LABS: Troponin I 0.103 ng/ml
--- NOTE | 2023-12-02 11:55 | W.PN.CARDCBS ---
Today's Communication / Plan
-
Intravenous amiodarone for atrial fibrillation with increased rates in the setting of low blood pressure
Unfortunately cannot start guideline directed medical therapy of heart failure with reduced ejection fraction given hypotension.
Continue pulmonary treatments
Diuresis/hemodialysis for volume removal
Patient remains significantly ill with multiple comorbidities
Impression / Plan
-
PCP: Dr. Duron
Cardiology:Dr. Connor ([facility])
Impression:
Presented with SOB
Acute on chronic hypoxic respiratory failure
Paroxysmal atrial fibrillation/atrial tachycardia
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
Cardiomyopathy, EF 35-40%
COPD w/ possible acute exacerbation
CAD
h/o STRUCTURAL STEEL FITTER RCA, [place] and stents 2004, 2006, 2011,
3.5 mm Promus LAD 04/25/15
complex bifurcation PTCA of the proximal LAD and large first diagonal 11/27/15
cath 02/13/18 with STRUCTURAL STEEL FITTER RCA and occlusion of Diag-1 stent that appeared chronic
NSTEMI w/ no intervention 01/29/2022
Chronic Eliquis anticoagulation
ESRD on HD MWF
Mitral regurgitation
Aortic Stenosis
h/o recurrent GIB
DM2
HTN
Hyperlipidemia
Morbid obesity BMI 44
LEEANN
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
h/o skin breakdown and decubitus ulceration
Echo @ [facility] 06/05/2023: EF 40%, grade 2 diastolic dysfunction, moderate with peak/mean gradients 32/19 mmHg, IRVING 0.96 cm2, moderate MR
Echo 11/30/2023: EF 35 to 40%, global hypokinesis, stage II diastolic dysfunction, MAC with moderate MR, moderate with peak/mean gradients 28/15 mmHg, IRVING 1.1 cm2, mild TR, estimated PAP 50 mmHg
Plan:
-Significantly ill at this point. Marginal respiratory status. Now in atrial fibrillation/atrial tachycardia. In addition blood pressure on the low side.
Paroxysmal atrial fibrillation/atrial tachycardia
History of paroxysmal atrial fibrillation noted.
At this time to control heart rates with atrial arrhythmias I have started intravenous amiodarone.
She remains on oral anticoagulation
History of prior GI bleeds noted
Hypoxia and heart failure acute on chronic with now reduced ejection fraction.
Volume overload on admission with ProBNP >27,000. Volume status managed through hemodialysis. Also has used IV Lasix. Creatinine stable. Weight decreased.
Nephrology managing volume
Echo 11/30/2023 with EF 35 to 40%. Records requested and reviewed from primary senior physician including last office note and last echo. She has h/o CM with EF as low as 20-25% in 2021. EF has been in the 35-40% range since 2022.
Cardiology care has been at [place]. Cardiology note 05/11/2023, she was maintained on hydralazine 25mg BID, Imdur 30mg daily, Toprol 50mg BID, and spironolactone 12.5mg daily, however does not appear she was on dialysis at the time.
Enalapril and Toprol tried but hypotension noted and had to be discontinued.
Midodrine now started by primary service
Coronary artery disease
History of stents as noted
Continue risk factor modification
Low-level troponin likely non-NH troponin elevation in the setting of critical illness
Possible COPD exacerbation being treated by primary service
Known mitral regurgitation (moderate) and aortic stenosis (moderate).
Have reached out to primary service to update cardiovascular recommendations. Patient is significantly ill with poor prognosis overall given comorbidities.
I have spent 31 minutes critical care time.
HPI: Zenaida is an 78-year-old female with past medical history of CAD, paroxysmal atrial fibrillation, chronic HFmrEF, ESRD, mitral regurgitation, aortic stenosis, COPD, diabetes, hypertension, hyperlipidemia, and LEEANN who presents to ER for
evaluation of cough and shortness of breath. She states her breathing worsened to the point where she was unable to go to dialysis and instead came to the emergency room for evaluation on 11/29/2022. In ER, she was wheezing and was given
nebulizers. Chest x-ray showed evidence of acute heart failure exacerbation and proBNP was > 27,000. She was admitted for further workup and evaluation and nephrology was consulted as she mainly uses dialysis for volume control. She was also
started on IV Lasix that she still does make urine. She was also placed on BiPAP for hypoxia. She has been diuresing and weight has been coming down throughout her admission, but her oxygen requirements have remained above baseline and she remains
on BiPAP. She had echocardiogram on 11/30/2023 which showed EF 35 to 40%. Cardiology consulted for evaluation. Patient reports she has known reduced EF and follows with her primary senior physician, Dr. Connor for this. She continues to feel SOB,
however notes no edema or chest pain.
Progress Note - Shank Cutter
Subjective
Date of Service: December 02, 2023
Patient is short of breath. Denies chest pain.
Objective
Labs:
12/02/23 04:15
12/02/23 04:15
Labs
Hgb 11.1 g/dL (12.0-16.0) L 12/02/23 04:15
Hct 36.0 % (37.0-47.0) L 12/02/23 04:15
Plt Count 191 10^3/uL (130-400) 12/02/23 04:15
Sodium 131 mmol/L (135-145) L 12/02/23 04:15
Potassium 4.1 mmol/L (3.5-5.1) 12/02/23 04:15
BUN 29 mg/dl (7-17) H 12/02/23 04:15
Creatinine 1.6 mg/dL (0.6-1.0) H 12/02/23 04:15
Glucose 122 mg/dl (70-99) H 12/02/23 04:15
Troponins
11/29/23 12/01/23 12/01/23
13:05 11:12 15:07
Troponin I < 0.012 0.053 H* 0.063 H*
12/01/23 12/02/23 12/02/23
21:17 04:15 11:16
Troponin I 0.070 H* 0.075 H* 0.103 H* D
Vital Signs and I&O:
Vital Signs
Temp Pulse Resp BP Pulse Ox
97.9 F 128 36 109/78 93
12/02/23 08:16 12/02/23 11:31 12/02/23 11:31 12/02/23 10:00 12/02/23 11:31
Vital Signs
Temp Pulse Resp BP Pulse Ox
97.9 F 128 36 109/78 93
12/02/23 08:16 12/02/23 11:31 12/02/23 11:31 12/02/23 10:00 12/02/23 11:31
Intake & Output
11/30/23 12/01/23 12/02/23 12/03/23
06:59 06:59 06:59 06:59
Intake Total 240 / 240 100 / 100 250 / 250
Balance 240 / 240 100 / 100 250 / 250
Physical Exam
Physical Exam
General: Ill-appearing patient short of breath on high flow oxygen
Heart: Distant heart sounds tachycardic and irregular
Lungs: High flow oxygen in place coarse breath sounds anteriorly
Extremities: No clubbing, cyanosis and +1 edema bilaterally.
--- NOTE | 2023-12-02 12:08 | PTCARENOTE ---
Troponin 0.103. Patient placed on bipap by respiratory therapist 07/20 with 7L; Dr Mukherjee updated on troponin and bipap.
--- NOTE | 2023-12-02 12:44 | PTCARENOTE ---
Attempted to start amiodarone infusion in new IV site; however, directly above site felt hard when flushed. Second new site possibly leaking when flushed. VAT RN aware and will come to assess.
--- NOTE | 2023-12-02 13:18 | W.PN.NEPH.PH ---
Today's Communication / Plan
-
- no HD today
- patient still makes urine so okay for lasix if needed. as O2 weaned to HFNC, can monitor for now
Assessment/Plan
-
IMP:
Acute on Chronic Hypoxic Respiratory Failure secondary to Acute Volume Overload
ESRD on HD since 07/2023?
Right chest wall tunneled catheter
Coronary Artery Disease s/p stents
Paroxysmal Atrial Fibrillation
Hyperlipidemia
Diabetes Mellitus, Type II
Peripheral Neuropathy
COPD
Hyponatremia-dilutional in ESRD
PLan:
A/w sob, noted CHF, missed HD sessions
recent initiation of HD per history-will need more records from [place]
agree with lasix and redose if needed
HD with UF yesterday but limited by significant hypotension
on midodrine byt blood pressures soft
started on empiric abx, steroids, duonebs. BiPAP --> HFNC --> back to BiPAP today
cardiology on board for Afib and acute HFrEF. GDMT limited by hypotension
d/w primary
-
-
Date of Service: December 02, 2023
CC / HPI / ROS
-
Chief Complaint:
ESRD on HD
History of Present Illness:
SOB
Acute on chronic respiratory failure
Review of Systems:
on NIV
Labs
-
Labs:
WBC 13.1 10^3/uL (4.8-10.8) H 12/02/23 04:15
RBC 4.02 10^6/uL (4.20-5.40) L 12/02/23 04:15
Hgb 11.1 g/dL (12.0-16.0) L 12/02/23 04:15
Hct 36.0 % (37.0-47.0) L 12/02/23 04:15
Plt Count 191 10^3/uL (130-400) 12/02/23 04:15
Sodium 131 mmol/L (135-145) L 12/02/23 04:15
Potassium 4.1 mmol/L (3.5-5.1) 12/02/23 04:15
Chloride 96 mmol/L (98-107) L 12/02/23 04:15
Carbon Dioxide 28 mmol/L (22-30) 12/02/23 04:15
BUN 29 mg/dl (7-17) H 12/02/23 04:15
Creatinine 1.6 mg/dL (0.6-1.0) H 12/02/23 04:15
eGFR 32.40 12/02/23 04:15
Glucose 122 mg/dl (70-99) H 12/02/23 04:15
Calcium 8.9 mg/dl (8.4-10.2) 12/02/23 04:15
Phosphorus 4.3 mg/dl (2.5-4.5) 12/02/23 04:15
Xvs-M-Tnjtxjgfwdg Pept > 87311 pg/ml 11/29/23 13:05
Albumin 3.7 g/dl (3.5-5.0) 12/02/23 04:15
Physical Exam
-
Vital Signs:
Vital Signs
Temp Pulse Resp BP Pulse Ox
97.5 F 130 41 90/80 98
12/02/23 11:59 12/02/23 13:14 12/02/23 13:14 12/02/23 13:14 12/02/23 13:14
Cardiovascular:: Irregular rate and rhythm
Respiratory:: Bilateral: Coarse
Lung Excursion:: Abnormal
Abdomen:: Nontender and Soft
Bowel Sounds:: Normal
Extremity Edema:: +2: Bilateral:
Swenson Catheter: No
[2023-12-02] MEDS: CORDARONE 518 MG IV (13:47)
--- NOTE | 2023-12-02 14:42 | W.PN.HOSP.TC ---
Today's Communication/Plan
-
On high flow nasal cannula, can intermittently go back on BiPAP during naps, sleep and to provide some comfort
Switch to Zosyn, MRSA negative
Solu-Medrol 60 mg every 6
DuoNebs
Amiodarone drip
Assessment / Plan
Assessment / Plan
Physical Exam
General: Well Developed, Well Nourished and Conversant
HEENT: Anicteric, Moist mucous membranes and Oxygen (Bipap)
Respiratory: Rhonchi (Diffuse)
Cardiac: S1/S2 and Regular Rhythm
GI: Soft and Non Tender
Rectal: Deferred by Provider
Musculoskeletal: No Clubbing, No Cyanosis, Edema, Left Lower Extremity and Edema, Right Lower Extremity
Skin: Warm and Dry
Neuro: Awake, Alert and Nonfocal/grossly intact
Acute on Chronic Hypoxic Respiratory Failure secondary to COPD exacerbation +/- Acute HFrEF
-Continue BiPAP - Wean as able
-F/u ECHO -0 EF 30-35%
-HD as scheduled; could not pull out much 12/01 due to lower BPs; s/p IV lasix
-Duonebs
-Solumedrol - advance to 60mg q6h
-Empiric Abx - MRSA negative; switch to zosyn
-on HFNC - due to accessory muscle use, can place back on BiPAP for now and can use intermittently and with naps and sleep
-F/u MRSA, RSV
�Less likely PE as DVT studies negative and patient has expiratory wheezing indicative of other pulmonary pathology; also already on Eliquis
- i suspect anxiety is also another underlying issue worsening resp distress
-Would not tolerate CT IV cont as cannot lay still/flat
#Acute HFrEF
-cards consulted
-HD
-Cannot optimize meds due to lower BPs
#Black Stool
-possibly 2/2 to iron supplements
-monitor hgb on eliquis,
#Elevated trop
-Likely non-MD troponin elevation
-most likely exacerbated by afib, acute HFref
� Continue to trend until peak
No chest pain
Coronary Artery Disease s/p stents
Paroxysmal Atrial Fibrillation
-Continue Eliquis for anticoagulation
-Start amiodarone
Hyperlipidemia
-Continue atorvastatin
Diabetes Mellitus, Type II
-Continue Lantus - half dose as currently on bipap and cannot tolerate PO at time
-Monitor sugars and continue coverage insulin
Peripheral Neuropathy
-Continue gabapentin
COPD
-Continue DuoNeb and Pulmicort in place of Trelegy
-see plan above
#Hyponatremia
� Most likely SIADH
� Monitor with dialysis
DVT proph: Eliquis
Code Status: DNR/DNI
Total time spent on today's encounter was 55 minutes which included time spent in counseling the patient/family regarding diagnosis and treatment plan as listed above, goals of care, and symptom management. Case was discussed with nursing staff,
specialists, and care coordinators/case management. All labs and imaging personally reviewed by me. Remainder the time spent in detailed review of previous records, lab data, imaging, and other medical provider documentation.
Anticipated Discharge: > 48 hours
Subjective/Interval History
-
Date of Service: December 02, 2023
bipap weaned off although still having moderate accessory muscle use
Objective Data
-
Labs:
Laboratory Results
12/02/23
04:15
WBC 13.1 H
Hgb 11.1 L
Hct 36.0 L
Plt Count 191
Sodium 131 L
Potassium 4.1
Chloride 96 L
Carbon Dioxide 28
BUN 29 H
Creatinine 1.6 H
Glucose 122 H
Calcium 8.9
Total Bilirubin 0.6
AST 20
ALT 14
Alkaline Phosphatase 79
Vital Signs:
Vital Signs
Temp Pulse Resp BP Pulse Ox
97.5 F 115 39 92/79 97
12/02/23 11:59 12/02/23 13:54 12/02/23 13:54 12/02/23 13:54 12/02/23 13:54
I&O
12/01/23 12/02/23 12/03/23
06:59 06:59 06:59
Intake Total 100 / 100 250 / 250
Balance 100 / 100 250 / 250
Review of Systems
-
History Source: Patient
All other systems: Not reviewed unless documented
Data Reviewed
-
Diagnostic Radiology: Image personally visualized and interpreted and Report Reviewed by me
Labs: Labs Reviewed by me
[2023-12-02] MEDS: ZOSYN 50 IV ×2 (15:52→22:55)
[2023-12-02] MEDS: STERILE WATER FOR INJECTION IV (15:53)
[2023-12-02 18:13] LABS: Glucose - Point of Care 145 mg/dl (70-99)
[2023-12-02] MEDS: ELIQUIS 2.5 MG PO (20:35)
[2023-12-02] MEDS: LIPITOR 40 MG PO (23:27)
[2023-12-02] MEDS: LEVEMIR 0.0599999999999999978 UNITS SC (23:27)
[2023-12-02 23:29] LABS: Glucose - Point of Care 152 mg/dl (70-99)
[2023-12-02] MEDS: NOVOLOG FLEXPEN-LOW RESISTANCE 1 UNITS SC (23:29)
[2023-12-03] VITALS (49 sets, daily range): BP systolic 90–144; BP diastolic 36–94; PULSE 2–96; BMI 38.3
[2023-12-03] LABS: Troponin I 0.564 ng/ml
[2023-12-03] MEDS: DUONEB 3 ML INH ×5 (01:00→19:39)
[2023-12-03] MEDS: HALDOL 1 MG IV ×3 (01:01→21:32)
--- NOTE | 2023-12-03 02:19 | PTCARENOTE ---
Received patient at change of shift. Assessment and vital signs as documented. Medications given as per DEC. Patient remains on amiodarone gtt, rate titrated as per protocol to 0.5 mg/min at 19:49. Patient with c/o not being able to breath around 1
am, pulsox 98% on bipap 10/5 w/7L O2. Respiratory notified, pt given breathing treatment. Haldol given as per DEC. Patient resting comfortably. Patient refusing most turns, education provided on need for turns to decreased skin damage, patient
verbalized understanding.
Patient troponin rising, at 2300 lab draw result 0.564, patient w/no change of symptoms, denies chest pain/discomfort, SOB has not changed. House provider contacted, no new orders received. Next troponin draw at 0700, will continue to monitor.
[2023-12-03] MEDS: SOLU-MEDROL PF 60 MG IV ×4 (03:35→20:09)
[2023-12-03] MEDS: ZOSYN 50 IV ×4 (03:35→21:14)
[2023-12-03 06:21] LABS: Hemoglobin 10.6 g/dL (12.0-16.0); Mean Corp Hgb Conc. 30.3 g/dL (33.0-37.0); Mean Corpuscular Hgb 28.3 pg (27.0-31.0); Mean Corpuscular Volume 93.6 fL (81.0-99.0); Mean Platelet Volume 11.4 fL (7.4-10.4); Platelet Count 183 10^3/uL (130-400); Red Blood Cell Count 3.74 10^6/uL (4.20-5.40); Red Cell Dist. Width 16.5 % (11.5-14.5); White Blood Cell Count 9.5 10^3/uL (4.8-10.8)
[2023-12-03] MEDS: NOVOLOG FLEXPEN-LOW RESISTANCE 1 UNITS SC ×3 (06:21→17:50)
[2023-12-03 06:31] LABS: Glucose - Point of Care 167 mg/dl (70-99)
[2023-12-03 06:31] LABS: ALT (SGPT) 16 U/L (0-35); AST (SGOT) 27 U/L (14-36); Albumin 3.5 g/dl (3.5-5.0); Alkaline Phosphatase 65 U/L (38-126); Blood Urea Nitrogen 54 mg/dl (7-17); Calcium 8.3 mg/dl (8.4-10.2); Carbon Dioxide 27 mmol/L (22-30); Chloride 94 mmol/L (98-107); Estimated Creatinine Clearance 18 ml/min; Glucose 168 mg/dl (70-99); Magnesium 2.1 mg/dl (1.6-2.3); Phosphorus 6.5 mg/dl (2.5-4.5); Potassium 4.4 mmol/L (3.5-5.1); Sodium 130 mmol/L (135-145); Total Bilirubin 0.7 mg/dl (0.2-1.3); Total Protein 5.9 g/dl (6.3-8.2); eGFR 18.09
[2023-12-03 06:42] LABS: Troponin I 0.519 ng/ml
[2023-12-03] MEDS: PULMICORT 0.5 MG INH ×2 (08:04→19:39)
[2023-12-03] MEDS: PROTONIX IV 40 MG IV ×2 (08:16→20:08)
[2023-12-03] MEDS: NSS (PRESERVATIVE FREE) 10 ML IV ×2 (08:16→20:08)
[2023-12-03] MEDS: DESENEX/MITRAZOL/ZEASORB 1 APPLIC TOPICAL ×2 (08:22→20:14)
[2023-12-03] MEDS: LEVEMIR 0.0899999999999999967 UNITS SC (08:54)
[2023-12-03] MEDS: ProAmatine 10 MG PO (08:55)
[2023-12-03] MEDS: FEOSOL 325 MG PO (08:56)
[2023-12-03] MEDS: ELIQUIS 2.5 MG PO (08:56)
[2023-12-03] MEDS: ZOLOFT 25 MG PO (08:56)
[2023-12-03] MEDS: FOLVITE 1 MG PO (08:56)
[2023-12-03 09:02] LABS: Glucose - Point of Care 147 mg/dl (70-99)
--- NOTE | 2023-12-03 10:11 | W.PN.CARDCBS ---
Today's Communication / Plan
-
IV amiodarone renewed for rate control of atrial arrhythmia, started 12/02/2023 when increased heart rates in patient with increased shortness of breath
Continues with requiring high flow oxygen, defer to primary service
CT scan pending
Volume management per nephrology
Impression / Plan
-
PCP: Dr. Duron
Cardiology:Dr. Connor ([facility])
Impression:
Presented with SOB
Acute on chronic hypoxic respiratory failure
Paroxysmal atrial fibrillation/atrial tachycardia
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
Cardiomyopathy, EF 35-40%
COPD w/ possible acute exacerbation
Non-IN troponin elevation 0.564
CAD
h/o PHYSICAL THERAPY ASSISTANT RCA, [place] and stents 2004, 2006, 2011,
3.5 mm Promus LAD 04/25/15
complex bifurcation PTCA of the proximal LAD and large first diagonal 11/27/15
cath 02/13/18 with PHYSICAL THERAPY ASSISTANT RCA and occlusion of Diag-1 stent that appeared chronic
NSTEMI w/ no intervention 01/29/2022
Chronic Eliquis anticoagulation
ESRD on HD MWF
Mitral regurgitation
Aortic Stenosis
h/o recurrent GIB
DM2
HTN
Hyperlipidemia
Morbid obesity BMI 44
LEEANN
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
h/o skin breakdown and decubitus ulceration
Echo @ [facility] 06/05/2023: EF 40%, grade 2 diastolic dysfunction, moderate with peak/mean gradients 32/19 mmHg, IRVING 0.96 cm2, moderate MR
Echo 11/30/2023: EF 35 to 40%, global hypokinesis, stage II diastolic dysfunction, MAC with moderate MR, moderate with peak/mean gradients 28/15 mmHg, IRVING 1.1 cm2, mild TR, estimated PAP 50 mmHg
Plan:
-Remains significantly ill. Marginal respiratory status. As noted has recurred in atrial fibrillation/atrial tachycardia. In addition blood pressure on the low side.
Paroxysmal atrial fibrillation/atrial tachycardia
History of paroxysmal atrial fibrillation noted.
On 12/02/2023 I started intravenous amiodarone for rate control of atrial arrhythmias and rates are better predominantly 90s to 100 at maximum (previously 130s to 150s). IV amiodarone renewed
She remains on oral anticoagulation
History of prior GI bleeds noted
Hypoxia and heart failure acute on chronic with now reduced ejection fraction.
Given continued shortness of breath and need for high flow oxygen patient going to undergo CT scan per primary service today.
Volume overload on admission with ProBNP >27,000. Volume status managed through hemodialysis. Also has used IV Lasix. Creatinine stable. Weight decreased.
Nephrology managing volume
Echo 11/30/2023 with EF 35 to 40%. Records requested and reviewed from primary bag sorter including last office note and last echo. She has h/o CM with EF as low as 20-25% in 2021. EF has been in the 35-40% range since 2022.
Cardiology care has been at [place]. Cardiology note 05/11/2023, she was maintained on hydralazine 25mg BID, Imdur 30mg daily, Toprol 50mg BID, and spironolactone 12.5mg daily, however does not appear she was on dialysis at the time.
Enalapril and Toprol tried but hypotension noted and had to be discontinued.
Midodrine now started by primary service
Coronary artery disease
History of stents as noted
Continue risk factor modification
Low-level troponin likely non-IN troponin elevation in the setting of critical illness
Possible COPD exacerbation being treated by primary service
Known mitral regurgitation (moderate) and aortic stenosis (moderate).
Discussed with nursing.
HPI: Zenaida is an 78-year-old female with past medical history of CAD, paroxysmal atrial fibrillation, chronic HFmrEF, ESRD, mitral regurgitation, aortic stenosis, COPD, diabetes, hypertension, hyperlipidemia, and LEEANN who presents to ER for
evaluation of cough and shortness of breath. She states her breathing worsened to the point where she was unable to go to dialysis and instead came to the emergency room for evaluation on 11/29/2022. In ER, she was wheezing and was given
nebulizers. Chest x-ray showed evidence of acute heart failure exacerbation and proBNP was > 27,000. She was admitted for further workup and evaluation and nephrology was consulted as she mainly uses dialysis for volume control. She was also
started on IV Lasix that she still does make urine. She was also placed on BiPAP for hypoxia. She has been diuresing and weight has been coming down throughout her admission, but her oxygen requirements have remained above baseline and she remains
on BiPAP. She had echocardiogram on 11/30/2023 which showed EF 35 to 40%. Cardiology consulted for evaluation. Patient reports she has known reduced EF and follows with her primary bag sorter, Dr. Connor for this. She continues to feel SOB,
however notes no edema or chest pain.
Progress Note - Railroad Passenger Agent
Subjective
Date of Service: December 03, 2023
Although appearing a bit more comfortable than yesterday she has dyspnea at rest. She denies chest pain and palpitations.
Objective
Labs:
12/03/23 06:01
12/03/23 06:01
Labs
Hgb 10.6 g/dL (12.0-16.0) L 12/03/23 06:01
Hct 35.0 % (37.0-47.0) L 12/03/23 06:01
Plt Count 183 10^3/uL (130-400) 12/03/23 06:01
Sodium 130 mmol/L (135-145) L 12/03/23 06:01
Potassium 4.4 mmol/L (3.5-5.1) 12/03/23 06:01
BUN 54 mg/dl (7-17) H 12/03/23 06:01
Creatinine 2.6 mg/dL (0.6-1.0) H 12/03/23 06:01
Glucose 168 mg/dl (70-99) H 12/03/23 06:01
Troponins
12/01/23 12/01/23 12/01/23
11:12 15:07 21:17
Troponin I 0.053 H* 0.063 H* 0.070 H*
12/02/23 12/02/23 12/02/23
04:15 11:16 15:45
Troponin I 0.075 H* 0.103 H* D 0.220 H* D
12/02/23 12/03/23
23:19 06:01
Troponin I 0.564 H* D 0.519 H*
Vital Signs and I&O:
Vital Signs
Temp Pulse Resp BP Pulse Ox
97.4 F 92 31 98/72 93
12/03/23 07:08 12/03/23 09:01 12/03/23 09:01 12/03/23 09:01 12/03/23 09:01
Vital Signs
Temp Pulse Resp BP Pulse Ox
97.4 F 92 31 98/72 93
12/03/23 07:08 12/03/23 09:01 12/03/23 09:01 12/03/23 09:01 12/03/23 09:01
Intake & Output
12/01/23 12/02/23 12/03/23 12/04/23
06:59 06:59 06:59 06:59
Intake Total 100 / 100 250 / 250 245.9 / 245.9
Output Total 0 / 0
Balance 100 / 100 250 / 250 245.9 / 245.9
Physical Exam
Physical Exam
General: Ill-appearing woman
Heart: Distant heart sounds irregularly irregular
Lungs: High flow oxygen in place with coarse breath sounds and shortness of breath noted
Extremities: No clubbing, cyanosis and +1 edema bilaterally.
Neuro: Grossly nonfocal,
--- NOTE | 2023-12-03 11:14 | W.PN.UPDATE ---
Addendum entered and electronically signed by Errol Mukherjee MD 12/03/23 11:28:
Update: Patient amenable to thoracentesis if feasible. Will contact IR prior to transitioning to comfort to assess if thoracentesis feasbile and may benefit.
Original Note:
Update Note
Progress Note Update
Spoke to patient who is AAOx3. She understands the severity of her critical illness and poor prognosis. After extensive conversation with her nurse (Mei Ames) at bedside, patient expressives desire to transition her care to comfort rather than
restorative. Patient understands this will mean de-escalation of all interventions, including but not limited to NIV, medications, Dialysis. Patient understands and is aware that goals will include comfort, and with eventual result of passing away.
Spoke to family of patients wishes and they understand. Will transition over to comfort care.
--- NOTE | 2023-12-03 11:54 | PTCARENOTE ---
Assumed care of patient at beginning of this shift from previous RN. Patient given norco as per prn order for c/o back pain. Foam adhesive placed over burn site from heating pad that patient used at home; WOC consulted. Patient 1 assist OOB to
commode; declined to sit in chair at this time d/t feeling tired and not sleeping well. POx 94-95% on 2L n/c; occasional non-productive cough, sputum specimen cup at bedside. See worklist for full assessment and vital signs; see MAR for med
administration.
--- NOTE | 2023-12-03 11:59 | PTCARENOTE ---
Assumed care of patient at beginning of this shift from previous RN with bipap in use. Respiratory therapist changed to high flow and patient was able to take po meds but declined breakfast. POx remained 93-94% on high flow. Patient taken to CT scan
as ordered; changed to bipap for transport and accompanied by this RN and respiratory therapist. Patient did not want to go back to using high flow; remains 95-96% on bipap. Dr Mukherjee in to see patient after she returned from CT scan; this RN was
called into the room by Dr Mukherjee as patient stated she wanted to , however she would agree to thoracentesis. Refer to his updated note. See worklist for full assessment and vital signs; see MAR for med administration. Refer to updated orders.
Family currently at bedside.
[2023-12-03 12:21] LABS: Glucose - Point of Care 166 mg/dl (70-99)
--- NOTE | 2023-12-03 12:38 | W.PN.NEPH.PH ---
Today's Communication / Plan
-
- HD tomorrow
Assessment/Plan
-
IMP:
Acute on Chronic Hypoxic Respiratory Failure secondary to Acute Volume Overload
ESRD on HD since 07/2023?
Right chest wall tunneled catheter
Coronary Artery Disease s/p stents
Paroxysmal Atrial Fibrillation
Hyperlipidemia
Diabetes Mellitus, Type II
Peripheral Neuropathy
COPD
Hyponatremia-dilutional in ESRD
PLan:
A/w sob, noted CHF, missed HD sessions
recent initiation of HD per history-will need more records from [place]
agree with lasix and redose if needed
HD with [facility] Monday but limited by significant hypotension. plan for HD tomorrow unless patient transitions to comfort care.
on midodrine but blood pressures soft
started on empiric abx, steroids, duonebs. BiPAP --> HFNC --> back to BiPAP today
debating regarding thoracentesis vs. comfort care
cardiology on board for Afib and acute HFrEF. GDMT limited by hypotension
-
-
Date of Service: December 03, 2023
CC / HPI / ROS
-
Chief Complaint:
ESRD on HD
History of Present Illness:
SOB
Acute on chronic respiratory failure
Review of Systems:
on NIV
Labs
-
Labs:
WBC 9.5 10^3/uL (4.8-10.8) 12/03/23 06:01
RBC 3.74 10^6/uL (4.20-5.40) L 12/03/23 06:01
Hgb 10.6 g/dL (12.0-16.0) L 12/03/23 06:01
Hct 35.0 % (37.0-47.0) L 12/03/23 06:01
Plt Count 183 10^3/uL (130-400) 12/03/23 06:01
Sodium 130 mmol/L (135-145) L 12/03/23 06:01
Potassium 4.4 mmol/L (3.5-5.1) 12/03/23 06:01
Chloride 94 mmol/L (98-107) L 12/03/23 06:01
Carbon Dioxide 27 mmol/L (22-30) 12/03/23 06:01
BUN 54 mg/dl (7-17) H 12/03/23 06:01
Creatinine 2.6 mg/dL (0.6-1.0) H 12/03/23 06:01
eGFR 18.09 12/03/23 06:01
Glucose 168 mg/dl (70-99) H 12/03/23 06:01
Calcium 8.3 mg/dl (8.4-10.2) L 12/03/23 06:01
Phosphorus 6.5 mg/dl (2.5-4.5) H 12/03/23 06:01
Iss-W-Dlsbucirbbu Pept > 98382 pg/ml 11/29/23 13:05
Albumin 3.5 g/dl (3.5-5.0) 12/03/23 06:01
Physical Exam
-
Vital Signs:
Vital Signs
Temp Pulse Resp BP Pulse Ox
97.3 F 96 38 141/78 94
12/03/23 11:28 12/03/23 11:26 12/03/23 11:26 12/03/23 10:30 12/03/23 11:26
Cardiovascular:: Regular rate and rhythm
Respiratory:: Bilateral: Coarse
Lung Excursion:: Normal
Abdomen:: Nontender and Soft
Bowel Sounds:: Normal
Extremity Edema:: +2: Bilateral:
Swenson Catheter: No
--- NOTE | 2023-12-03 14:07 | W.PN.HOSP.TC ---
Today's Communication/Plan
-
On high flow nasal cannula, can intermittently go back on BiPAP during naps, sleep and to provide some comfort
Zosyn
Solu-Medrol 60 mg every 6h
IR consult for Thoracentesis
DuoNebs
Amiodarone drip
Continued GOC Conversation
HD tomorrow if possible
Assessment / Plan
Assessment / Plan
Physical Exam
General: Well Developed, Well Nourished and Conversant
HEENT: Anicteric, Moist mucous membranes and Oxygen (Bipap)
Respiratory: Rhonchi (Diffuse)
Cardiac: S1/S2 and Regular Rhythm
GI: Soft and Non Tender
Rectal: Deferred by Provider
Musculoskeletal: No Clubbing, No Cyanosis, Edema, Left Lower Extremity and Edema, Right Lower Extremity
Skin: Warm and Dry
Neuro: Awake, Alert and Nonfocal/grossly intact
Acute on Chronic Hypoxic Respiratory Failure secondary to COPD exacerbation +/- Acute HFrEF, pleural effusion and atypical pneumonia
-Continue BiPAP - Wean as able
-F/u ECHO -0 EF 30-35%
-HD as scheduled; could not pull out much 12/01 due to lower BPs; s/p IV lasix
-Duonebs
-Solumedrol - advance to 60mg q6h
-Empiric Abx - MRSA negative; switch to zosyn
� IR consulted for possible thoracentesis although may not improve symptoms drastically
-on HFNC - due to accessory muscle use, can place back on BiPAP for now and can use intermittently and with naps and sleep; wean O2 as tolerated
-F/u MRSA, RSV�negative
�Less likely PE as DVT studies negative and patient has expiratory wheezing indicative of other pulmonary pathology; also already on Eliquis
- i suspect anxiety is also another underlying issue worsening resp distress
#Acute HFrEF
-cards consulted
-HD as tolerated
-Cannot optimize meds due to lower BPs
#Black Stool
-possibly 2/2 to iron supplements
-monitor hgb on eliquis,
#Elevated trop
-Likely non-ND troponin elevation
-most likely exacerbated by afib, acute HFref
� Continue to trend until peak, cardiology on board
No chest pain
Coronary Artery Disease s/p stents
Paroxysmal Atrial Fibrillation
-Continue Eliquis for anticoagulation
-Start amiodarone
Hyperlipidemia
-Continue atorvastatin
Diabetes Mellitus, Type II
-Continue Lantus - half dose as currently on bipap and cannot tolerate PO at time
-Monitor sugars and continue coverage insulin
Peripheral Neuropathy
-Continue gabapentin
COPD
-Continue DuoNeb and Pulmicort in place of Trelegy
-see plan above
#Hyponatremia
� Most likely SIADH
� Monitor with dialysis
DVT proph: Eliquis
Code Status: DNR/DNI
Dispo: Patient alert and oriented x 3. Patient acknowledges/understands poor prognosis. Upon initial conversation, patient wants to transition to comfort, de-escalation of care stating she is ready to pass away. Patient understands all factors
and does not want aggressive care. Upon review of CT imaging with evidence of right small to moderate pleural effusion, patient was offered thoracentesis for possible slight improvement of symptoms and patient agreed. Therefore, IR consulted for
thoracentesis, and will continue current medical interventions at this time. If no improvement after thoracentesis, would continue to engage with patient in regards to neck steps including comfort care. Family understands.
Total time spent on today's encounter was 60 minutes which included time spent in counseling the patient/family regarding diagnosis and treatment plan as listed above, goals of care, and symptom management. Case was discussed with nursing staff,
specialists, and care coordinators/case management. All labs and imaging personally reviewed by me. Remainder the time spent in detailed review of previous records, lab data, imaging, and other medical provider documentation.
Anticipated Discharge: > 48 hours
Subjective/Interval History
-
Date of Service: December 03, 2023
Patient on and off high flow, BiPAP. Looks more comfortable on high flow nasal cannula while resting, saturating high percent although when waking up patient became anxious
Objective Data
-
Labs:
Laboratory Results
12/03/23
06:01
WBC 9.5
Hgb 10.6 L
Hct 35.0 L
Plt Count 183
Sodium 130 L
Potassium 4.4
Chloride 94 L
Carbon Dioxide 27
BUN 54 H
Creatinine 2.6 H
Glucose 168 H
Calcium 8.3 L
Total Bilirubin 0.7
AST 27
ALT 16
Alkaline Phosphatase 65
Vital Signs:
Vital Signs
Temp Pulse Resp BP Pulse Ox
97.3 F 89 31 111/75 95
12/03/23 11:28 12/03/23 12:30 12/03/23 12:30 12/03/23 12:30 12/03/23 12:30
I&O
12/02/23 12/03/23 12/04/23
06:59 06:59 06:59
Intake Total 250 / 250 295.9 / 295.9
Output Total 0 / 0
Balance 250 / 250 295.9 / 295.9
Review of Systems
-
History Source: Patient
All other systems: Not reviewed unless documented
Data Reviewed
-
Diagnostic Radiology: Image personally visualized and interpreted and Report Reviewed by me
CT Scan: Image personally visualized and interpreted and Report Reviewed by me
Labs: Labs Reviewed by me
[2023-12-03] MEDS: CORDARONE 518 MG IV (14:21)
[2023-12-03] MEDS: STERILE WATER FOR INJECTION IV (15:50)
--- NOTE | 2023-12-03 15:52 | CHAP ---
Asked by the nurse to pray with Zenaida and her family, as they are considering hospice. Zenaida, reportedly, has said she wants to . Family members at bedside were distraught. I prayed with them, asking God's blessings for Zenaida and family. The
family was very appreciative.
[2023-12-03] MEDS: FLUSH (NSS) 1 FLUSH IV (17:00)
[2023-12-03 17:42] LABS: Glucose - Point of Care 155 mg/dl (70-99)
[2023-12-03] MEDS: ELIQUIS PO (20:08)
[2023-12-03] MEDS: MORPHINE SULFATE 2 MG IV (23:01)
[2023-12-03 23:21] LABS: Glucose - Point of Care 134 mg/dl (70-99)
[2023-12-03] MEDS: LIPITOR PO (23:25)
[2023-12-03] MEDS: LEVEMIR 0.0599999999999999978 UNITS SC (23:25)
[2023-12-04] VITALS (40 sets, daily range): BP systolic 76–164; BP diastolic 38–147; PULSE 2; BMI 38.6; BMI 37.9
--- NOTE | 2023-12-04 | PTCARENOTE ---
Assumed care of Pt from day RN. Pt currently on Bipap spo2 90-93. Pt continuously ringing saying 'she cant breath' Respiratory TT to come assess about bumping her O2 to 6L on Bipap. Even after setting bumped up pt continuously calling, pt still
'having difficulty breathing', also saying ' I does not want to do any of this anymore'. Emotional support given, Night Amortization Clerk contacted and morphine ordered. After administered and reassessing Pt appears more at peace and resting comfortably.
[2023-12-04] MEDS: NOVOLOG FLEXPEN-LOW RESISTANCE SC ×3 (00:24→12:15)
[2023-12-04] MEDS: ZOSYN 50 IV (04:14)
[2023-12-04] MEDS: SOLU-MEDROL PF 60 MG IV ×2 (04:14→11:04)
[2023-12-04 05:13] LABS: Hematocrit 34.1 % (37.0-47.0); Hemoglobin 10.3 g/dL (12.0-16.0); Mean Corp Hgb Conc. 30.2 g/dL (33.0-37.0); Mean Corpuscular Hgb 28.1 pg (27.0-31.0); Mean Corpuscular Volume 93.2 fL (81.0-99.0); Mean Platelet Volume 11.8 fL (7.4-10.4); Platelet Count 171 10^3/uL (130-400); Red Blood Cell Count 3.66 10^6/uL (4.20-5.40); Red Cell Dist. Width 16.3 % (11.5-14.5)
[2023-12-04 06:12] LABS: ALT (SGPT) 12 U/L (0-35); AST (SGOT) 20 U/L (14-36); Albumin 3.3 g/dl (3.5-5.0); Alkaline Phosphatase 44 U/L (38-126); Blood Urea Nitrogen 71 mg/dl (7-17); Calcium 7.9 mg/dl (8.4-10.2); Carbon Dioxide 24 mmol/L (22-30); Chloride 86 mmol/L (98-107); Estimated Creatinine Clearance 16 ml/min; Glucose 170 mg/dl (70-99); Potassium 4.5 mmol/L (3.5-5.1); Sodium 130 mmol/L (135-145); Total Bilirubin 0.8 mg/dl (0.2-1.3); eGFR 15.24
[2023-12-04 06:12] LABS: Glucose - Point of Care 135 mg/dl (70-99)
--- NOTE | 2023-12-04 06:19 | PTCARENOTE ---
Pt rectal temp 95.5. Night Smoke Jumper Supervisor made aware, So hugger ordered. Warm blankets applied until So hugger arrival, Pt refused to have then on legs or near neck. Pt fan in room was turned slightly off face to help warm up, after compromise with PT and
emotional support.
--- NOTE | 2023-12-04 07:42 | PTCARENOTE ---
Pts axilaary temp 97.6, So hugger not placed.
[2023-12-04] MEDS: DUONEB 3 ML INH ×2 (07:45→11:27)
[2023-12-04] MEDS: PULMICORT 0.5 MG INH (07:45)
[2023-12-04] MEDS: ELIQUIS PO (07:54)
[2023-12-04] MEDS: FEOSOL PO (07:54)
[2023-12-04] MEDS: FOLVITE PO (07:54)
[2023-12-04] MEDS: DESENEX/MITRAZOL/ZEASORB 1 APPLIC TOPICAL (07:55)
[2023-12-04] MEDS: ZOLOFT PO (07:55)
[2023-12-04] MEDS: ProAmatine PO (07:55)
[2023-12-04] MEDS: PROTONIX IV 40 MG IV (07:56)
[2023-12-04] MEDS: NSS (PRESERVATIVE FREE) 10 ML IV (07:56)
--- NOTE | 2023-12-04 07:59 | W.PN.HOSP.TC ---
Today's Communication/Plan
-
see A/P
HD today
Plan for thoracentesis today
Assessment / Plan
Assessment / Plan
A/P:
# Acute on Chronic Hypoxic Respiratory Failure secondary to COPD exacerbation, +/- Acute HFrEF, pleural effusion and atypical pneumonia
# Clinical deconditioning
Continue BiPAP, wean as able
ECHO: EF 30-35%, Global hypokinesis.�Stage II diastolic dysfunction�
HD as scheduled; could not pull out much due to lower BPs; s/p IV lasix
Cont Duonebs
Cont Solumedrol - advanced to 60mg q6h
Empiric Abx with zosyn, MRSA negative
IR consulted for possible thoracentesis although may not improve symptoms drastically
COVID/Flu/RSV negative
Less likely PE as DVT studies negative and patient has expiratory wheezing indicative of other pulmonary pathology; also already on Eliquis
Suspect anxiety is also another underlying issue worsening resp distress
# Acute on chronic systolic and diastolic CHF
cards consulted
HD as tolerated
Cannot optimize meds due to lower BPs
# Black Stool, possibly 2/2 to iron supplements
monitor hgb on Eliquis
# Elevated trop, Likely non-DC troponin elevation, most likely exacerbated by afib and acute HF
No chest pain
Trop peaked at 0.56
cardiology on board
# Coronary Artery Disease s/p stents
# Paroxysmal Atrial Fibrillation
Continue Eliquis for anticoagulation
Started IV amiodarone
# Hyperlipidemia
Continue atorvastatin
# Diabetes Mellitus, Type II
Continue Lantus - half dose as currently on bipap and cannot tolerate PO at time
Monitor sugars and continue coverage insulin
# Peripheral Neuropathy
Continue gabapentin
# COPD
Continue DuoNeb and Pulmicort in place of Trelegy
see plan above
# Hyponatremia, Most likely SIADH
Monitor with dialysis
DVT proph: Eliquis
Code Status: DNR/DNI
Dr Mukherjee d/w patient 12/03: Patient alert and oriented x 3. Patient acknowledges/understands poor prognosis. Upon initial conversation, patient wants to transition to comfort, de-escalation of care stating she is ready to pass away. Patient
understands all factors and does not want aggressive care. Upon review of CT imaging with evidence of right small to moderate pleural effusion, patient was offered thoracentesis for possible slight improvement of symptoms and patient agreed.
Therefore, IR consulted for thoracentesis, and will continue current medical interventions at this time. If no improvement after thoracentesis, would continue to engage with patient in regards to next steps including comfort care. Family
understands.
d/w RN
Anticipated Discharge: 24 - 48 hours
Subjective/Interval History
-
Date of Service: December 04, 2023
Objective Data
-
Labs:
Laboratory Results
12/04/23
04:42
WBC 9.0
Hgb 10.3 L
Hct 34.1 L
Plt Count 171
Sodium 130 L
Potassium 4.5
Chloride 86 L
Carbon Dioxide 24
BUN 71 H
Creatinine 3.0 H
Glucose 170 H
Calcium 7.9 L
Total Bilirubin 0.8
AST 20
ALT 12
Alkaline Phosphatase 44
Vital Signs:
Vital Signs
Temp Pulse Resp BP Pulse Ox
36.4 C 72 16 93/48 100
12/04/23 07:42 12/04/23 07:46 12/04/23 07:46 12/04/23 06:01 12/04/23 07:46
I&O
12/03/23 12/04/23 12/05/23
06:59 06:59 06:59
Intake Total 647.9 / 647.9
Output Total 0 / 0
Balance 647.9 / 647.9
Review of Systems
-
Unable to obtain full review of systems at this time due to: Acuity
Physical Exam
-
General: Well Developed, Well Nourished, Comfortable, Respiratory Distress and Appears Chronically Ill
HEENT: Normocephalic, Atraumatic, Nose Appears Normal, Ears Appear Normal and Oxygen (BIPAP)
Respiratory: Clear to Auscultation and Non Labored Respirations; Negative Accessory Resp Muscle Use
Cardiac: Regular Rhythm and S1/S2
GI: Soft, Nontender, Nondistended and Normal Bowel Sounds
Skin: Warm and Dry
Neuro: Awake
Psych: Calm
Data Reviewed
-
CT Scan: Report Reviewed by me
Labs: Labs Reviewed by me
[2023-12-04] MEDS: LEVEMIR SC (08:03)
[2023-12-04 08:13] LABS: Glucose - Point of Care 137 mg/dl (70-99)
[2023-12-04] MEDS: ProAmatine 10 MG PO (08:13)
[2023-12-04] MEDS: MANNITOL 12.5 GRAMS IV (09:59)
[2023-12-04] MEDS: RETACRIT 3000 UNITS IV (09:59)
--- NOTE | 2023-12-04 10:20 | W.PN.NEPH.HD ---
Assessment
-
pt seen during HD
vitals relatively stable with midodrine
pt is not arousable during visit on BIPAP
plan for thoracentesis today
considering comfortcare
CVC functions fine
Progress Note - Hemodialysis
-
Date of Service: December 04, 2023
Duration: 30 minutes and 3 hours
Potassium Bath: 2
Calcium Bath: 2.5
Opti-Dialyzer: 160
Ultrafiltration: Other (1.5-2kg)
Blood Flow: 400
Dialysate Flow: 600
Heparin: no
EPO: 3000
--- NOTE | 2023-12-04 10:23 | W.PN.CARDCBS ---
Today's Communication / Plan
-
Remains significantly ill
For atrial fibrillation we will switch IV amiodarone to oral.
Volume removal as able.
Primary service looking into possible thoracentesis
Continue supportive care
Impression / Plan
-
PCP: Dr. Duron
Cardiology:Dr. Connor ([facility])
Impression:
Presented with SOB
Acute on chronic hypoxic respiratory failure
Paroxysmal atrial fibrillation/atrial tachycardia
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
Cardiomyopathy, EF 35-40%
COPD w/ possible acute exacerbation
Non-AL troponin elevation 0.564
CAD
h/o GALLERY OR MUSEUM GUIDE RCA, AL and stents 2004, 2006, 2011,
3.5 mm Promus LAD 04/25/15
complex bifurcation PTCA of the proximal LAD and large first diagonal 11/27/15
cath 02/13/18 with GALLERY OR MUSEUM GUIDE RCA and occlusion of Diag-1 stent that appeared chronic
NSTEMI w/ no intervention 01/29/2022
Chronic Eliquis anticoagulation
ESRD on HD MWF
Mitral regurgitation
Aortic Stenosis
h/o recurrent GIB
DM2
HTN
Hyperlipidemia
Morbid obesity BMI 44
LEEANN
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
h/o skin breakdown and decubitus ulceration
Echo @ [facility] 06/05/2023: EF 40%, grade 2 diastolic dysfunction, moderate with peak/mean gradients 32/19 mmHg, IRVING 0.96 cm2, moderate MR
Echo 11/30/2023: EF 35 to 40%, global hypokinesis, stage II diastolic dysfunction, MAC with moderate MR, moderate with peak/mean gradients 28/15 mmHg, IRVING 1.1 cm2, mild TR, estimated PAP 50 mmHg
Plan:
-Remains significantly ill. Reviewed primary service note and patient considering more comfort type measures. However would like to proceed with the evaluation for thoracentesis. Continues with significant oxygen requirements. As noted during
this admission has recurred in atrial fibrillation/atrial tachycardia. In addition blood pressure on the low side.
Paroxysmal atrial fibrillation/atrial tachycardia
History of paroxysmal atrial fibrillation noted.
On 12/02/2023 I started intravenous amiodarone for rate control of atrial arrhythmias and rates are better predominantly 90s to 100 at maximum (previously 130s to 150s). Will switch to oral amiodarone load. EKG stable. Follow. Telemetry stable.
She remains on oral anticoagulation
History of prior GI bleeds noted
Hypoxia and heart failure acute on chronic with now reduced ejection fraction.
Volume overload on admission with ProBNP >27,000. Volume status managed through hemodialysis. Also has used IV Lasix. Creatinine stable. Weight decreased.
Hypotension limiting taking off fluid with dialysis.
Nephrology managing volume
Echo 11/30/2023 with EF 35 to 40%. Records requested and reviewed from primary second vp hr assessment including last office note and last echo. She has h/o CM with EF as low as 20-25% in 2021. EF has been in the 35-40% range since 2022.
Cardiology care has been at [place] [facility]. Cardiology note 05/11/2023, she was maintained on hydralazine 25mg BID, Imdur 30mg daily, Toprol 50mg BID, and spironolactone 12.5mg daily, however does not appear she was on dialysis at the time. Enalapril
and Toprol tried but hypotension noted and had to be discontinued.
Midodrine now started by primary service
Coronary artery disease
History of stents as noted
Continue risk factor modification
Low-level troponin likely non-AL troponin elevation in the setting of critical illness
Possible COPD exacerbation being treated by primary service
Known mitral regurgitation (moderate) and aortic stenosis (moderate).
Overall poor prognosis given comorbidities and significant illness.
HPI: Zenaida is an 78-year-old female with past medical history of CAD, paroxysmal atrial fibrillation, chronic HFmrEF, ESRD, mitral regurgitation, aortic stenosis, COPD, diabetes, hypertension, hyperlipidemia, and LEEANN who presents to ER for
evaluation of cough and shortness of breath. She states her breathing worsened to the point where she was unable to go to dialysis and instead came to the emergency room for evaluation on 11/29/2022. In ER, she was wheezing and was given
nebulizers. Chest x-ray showed evidence of acute heart failure exacerbation and proBNP was > 27,000. She was admitted for further workup and evaluation and nephrology was consulted as she mainly uses dialysis for volume control. She was also
started on IV Lasix that she still does make urine. She was also placed on BiPAP for hypoxia. She has been diuresing and weight has been coming down throughout her admission, but her oxygen requirements have remained above baseline and she remains
on BiPAP. She had echocardiogram on 11/30/2023 which showed EF 35 to 40%. Cardiology consulted for evaluation. Patient reports she has known reduced EF and follows with her primary second vp hr assessment, Dr. Connor for this. She continues to feel SOB,
however notes no edema or chest pain.
Progress Note - Division Chief
Subjective
Date of Service: December 04, 2023
Would not wake up to talk today.
Objective
Labs:
12/04/23 04:42
12/04/23 04:42
Labs
Hgb 10.3 g/dL (12.0-16.0) L 12/04/23 04:42
Hct 34.1 % (37.0-47.0) L 12/04/23 04:42
Plt Count 171 10^3/uL (130-400) 12/04/23 04:42
Sodium 130 mmol/L (135-145) L 12/04/23 04:42
Potassium 4.5 mmol/L (3.5-5.1) 12/04/23 04:42
BUN 71 mg/dl (7-17) H 12/04/23 04:42
Creatinine 3.0 mg/dL (0.6-1.0) H 12/04/23 04:42
Glucose 170 mg/dl (70-99) H 12/04/23 04:42
Troponins
12/01/23 12/01/23 12/01/23
11:12 15:07 21:17
Troponin I 0.053 H* 0.063 H* 0.070 H*
12/02/23 12/02/23 12/02/23
04:15 11:16 15:45
Troponin I 0.075 H* 0.103 H* D 0.220 H* D
12/02/23 12/03/23
23:19 06:01
Troponin I 0.564 H* D 0.519 H*
Vital Signs and I&O:
Vital Signs
Temp Pulse Resp BP Pulse Ox
97.6 F 72 16 93/48 100
12/04/23 07:42 12/04/23 07:46 12/04/23 07:46 12/04/23 06:01 12/04/23 07:46
Vital Signs
Temp Pulse Resp BP Pulse Ox
97.6 F 72 16 93/48 100
12/04/23 07:42 12/04/23 07:46 12/04/23 07:46 12/04/23 06:01 12/04/23 07:46
Intake & Output
12/02/23 12/03/23 12/04/23 12/05/23
06:59 06:59 06:59 06:59
Intake Total 250 / 250 647.9 / 647.9
Output Total 0 / 0
Balance 250 / 250 647.9 / 647.9
Physical Exam
Physical Exam
General: Ill-appearing woman
Heart: Distant heart sounds irregular
Lungs: Coarse anterior breath sounds with BiPAP in place
Extremities: No clubbing, cyanosis +1 edema bilaterally.
Neuro: Sleeping
[2023-12-04] MEDS: HEPARIN 4000 UNITS INTRACATH (11:22)
[2023-12-04 12:05] LABS: Glucose - Point of Care 96 mg/dl (70-99)
[2023-12-04] MEDS: MORPHINE SULFATE 2 MG IV ×5 (12:27→23:37)
--- NOTE | 2023-12-04 13:08 | W.PN.UPDATE ---
Addendum entered and electronically signed by Silvia Cuenca MD 12/04/23 13:23:
Updated pt's family friend (Shikha [phone] who is listed as the secondary contact).
She is well aware of pt's desire to , and is in agreement with pt's decision to transition to comfort.
She provided pt's granddaughter (Nelia's number [phone]). Called twice, but calls not answered.
Shikha will help update the family.
Transition to comfort measures
Original Note:
Update Note
Progress Note Update
Informed by IR that pleural effusion is too small to safely tap.
Patient updated on this and she is requesting to 'let me '. Pt agreed to be transitioned to comfort measures.
Pt is AOx3 and is able to make her own decision.
called number [phone]�(listed as grandson) several times today. Calls not answered.
RN updated
[2023-12-04] MEDS: STERILE WATER FOR INJECTION IV (13:55)
--- NOTE | 2023-12-04 15:06 | PTCARENOTE ---
pt transitioned tocomfort care. medicated with 2 mg morphine iv with relief of dyspnea. pt currently still on bipap as she is not wanting it removed at this time for comfort. family members at bedside. pastoral care in to see pt and family.
--- NOTE | 2023-12-04 19:49 | PTCARENOTE ---
Addendum entered by Randi Collazo RN 12/04/23 20:41:
report given to Adelina MENESES, Pt transferred to [id number]
Original Note:
Received report form day RN. Pt appears to be resting comfortably in bed family at bedside. Pt will be transferred to [id number] after report is given.
[2023-12-04] MEDS: NEURONTIN PO (20:26)
[2023-12-04] MEDS: NSS (PRESERVATIVE FREE) 1 ML IV (23:43)
[2023-12-04] MEDS: ATIVAN 2 MG IV (23:43)
--- NOTE | 2023-12-05 01:39 | W.PN.DEATH ---
Pronouncement of
-
Called to see patient to pronounce.
No spontaneous heart tones or respirations noted.
Patient not responsive to verbal stimuli.
Patient is pronounced .
Time of : 01:05
Date of : 12/05/23
Family Notified: Yes (Friend Shikha aware and message left with Granddaughter Nelia.)
--- NOTE | 2023-12-05 03:13 | PTCARENOTE ---
Entered room on rounds; pt found to be without spontaneous respirations, no heart tones noted. Covering [employer] attempted to contact pt's family, no response after multiple attempts. Pt's friend Shikha, second contact, notified, politely declined
visitation. Post mortem care provided. Pt's belongings placed in pt belonging bag and labeled to be transported with pt. [employer] notified.
--- NOTE | 2023-12-05 09:43 | CM ---
Patient . Pronounced at 1:39am.
--- NOTE | 2023-12-05 13:42 | W.DCSUMMARY ---
Discharge Summary
Discharge Data
Date of Admission: 11/29/23
Date of Discharge: 12/05/23
-
Pending Results: No
Hospital Course
Principal Diagnosis:
Acute on chronic hypoxic respiratory failure secondary to Chronic obstructive pulmonary disease (COPD) exacerbation, acute heart failure, and possible atypical pneumonia
Non-myocardial infarction troponin elevation
Acute on chronic systolic and diastolic heart failure
Chronic Diagnoses:�
End-stage renal disease on dialysis
Chronic obstructive pulmonary disease with chronic hypoxic respiratory failure on 4 L nasal cannula prior to admission
Coronary artery disease status post stents
Paroxysmal Atrial Fibrillation on Eliquis for anticoagulation
Hyperlipidemia
Insulin-dependent diabetes mellitus
Peripheral Neuropathy on gabapentin
Consultations:�
Cardiology
Nephrology
Procedures:�
None
Clinical course:�
This is a 78-year-old female, with past medical history as stated above, who presented with severe shortness of breath.
Problem 1:
Acute on chronic hypoxic respiratory failure secondary to COPD exacerbation, acute on chronic systolic and diastolic heart heart failure, and possible atypical pneumonia.
This was associated with non-myocardial infarction troponin elevation.
Due to her severe hypoxia, the patient was placed on BiPAP for most of the time.
Her echo noted reduced EF at 30-35%, global hypokinesis and stage II diastolic dysfunction.
She was continued with hemodialysis although not much fluid could be pulled out due to her low blood pressure.
She was treated with Solu-Medrol for the COPD exacerbation and was covered with empiric antibiotic Zosyn for possible superimposed pneumonia.
There was small pleural effusion noted which according to IR is not amenable for thoracentesis.
She continued to decompensate clinically and was transitioned to comfort measures per her wish.
She on 12/05/2023 at 01:05 am.
Discharge Plan
-
Patient Disposition:
Date/Time
Date/Time: 12/05/23 01:05
Discharge Date and Time
Discharge Date/Time: 12/05/23 04:22
== END 2023-12-05 04:22 | disposition expired | DRG 291 ==
LOC: 2 NORTH 16:48
PROVIDERS: Physician Assistant Medical; Specialist; Student in an Organized Health Care Education/Training Program; ADMITTING PHYSICIAN Internal Medicine; ATTENDING PHYSICIAN Internal Medicine; EMERGENCY PHYSICIAN Emergency Medicine; FAMILY PHYSICIAN Internal Medicine; OTHER PHYSICIAN Internal Medicine; OTHER PHYSICIAN Internal Medicine Cardiovascular Disease
PROC: 5A1D70Z Performance of Urinary Filtration, Intermittent, Less than 6 Hours Per Day (ICD-10-PCS; 2023-11-30)
DX: I13.2 Hypertensive heart and chronic kidney disease with heart failure and with stage 5 chronic kidney disease, or end stage renal disease (principal); I50.43 Acute on chronic combined systolic (congestive) and diastolic (congestive) heart failure; J96.21 Acute and chronic respiratory failure with hypoxia; N18.6 End stage renal disease; J18.9 Pneumonia, unspecified organism; J44.1 Chronic obstructive pulmonary disease with (acute) exacerbation; E87.1 Hypo-osmolality and hyponatremia; E22.2 Syndrome of inappropriate secretion of antidiuretic hormone; Z68.41 Body mass index [BMI] 40.0-44.9, adult; I5A Non-ischemic myocardial injury (non-traumatic); I42.9 Cardiomyopathy, unspecified; Z11.52 Encounter for screening for COVID-19; Z66 Do not resuscitate; I25.10 Atherosclerotic heart disease of native coronary artery without angina pectoris; Z95.5 Presence of coronary angioplasty implant and graft; I48.0 Paroxysmal atrial fibrillation; G62.9 Polyneuropathy, unspecified; Z79.01 Long term (current) use of anticoagulants; Z99.2 Dependence on renal dialysis; E78.00 Pure hypercholesterolemia, unspecified; E11.22 Type 2 diabetes mellitus with diabetic chronic kidney disease; E66.01 Morbid (severe) obesity due to excess calories; Z51.5 Encounter for palliative care
CPT/HCPCS: 71045; 71250; 80048; 80053; 82805; 82962; 83036; 83735; 83880; 84100; 84132; 84443; 84484; 85025; 85027; 87070; 87340; 87502; 87807; 87811; 93005; 93306; 93970; 94640; 94660; 96374; 99291; G0257; P9047; Q5106; Q9950